=== PATIENT | male | born 1950 | race Caucasian/White ===

== ENCOUNTER 2017-01-30 16:15 | Emergency (ER) | payer BC, OTHER ==
[~2017-01-30] VITALS: Ht 170.2 cm; Wt 88.6 kg
[~2017-01-30 16:15] MED LIST: FERR325T PO; MULTTAB58 PO; OMEG100046 PO; PRAV10TA39 PO; TYLOTC500 PO
[2017-01-30 16:18] VITALS: TEMP 36.5; Ht 170.2 cm; Wt 88.6 kg
--- NOTE | 2017-01-30 16:42 | EMERGENCY ROOM VISIT NOTE ---
History Report prepared by Clayton: Andrea Monreal Under the Supervision of: Dr. Han Melvin M.D. First contact with patient: 16:25 Chief Complaint: RECTAL BLEEDING Stated Complaint: RECTAL BLEEDING History of Present Illness The patient is a 66 year old male who presents to the Emergency Room with complaints of worsening rectal bleeding starting prior to arrival. The patient' s states that the patient has diverticulitis and possible Crohn's disease, and this has happened before. She states that the patient was shoveling sod, and he was straining. This caused the bleeding to start again, and he could not get it under control. He additionally states that he has had gas for a couple of months which he has an ultrasound for this week, and he has a history of prostatitis. The patient states that he takes aspirin and Advil. The patient states that he had melena two days ago, however yesterday he had normal bowel movements. The patient states that he has had 3 bowel movements, and they have gotten more bloody each time. He denies having any abdominal pain. Source of History: patient, spouse/significant other Onset: prior to arrival Position: other (rectum) Quality: other (bleeding) Timing: worsening Associated Symptoms: + melena, No abdominal pain Review of Systems All systems have been listed, reviewed, and are negative other than those previously mentioned. Please see Additional Medical History Sheet. Past Medical & Surgical Medical Problems: (1) Diverticulitis (2) History of GI diverticular bleed Surgical Problems: (1) H/O hernia repair Family History FH: cancer Social History Smoking Status: Former Smoker Alcohol Use: occasionally Marital Status: Housing Status: lives with significant other Current/Historical Medications Scheduled Glucosamine Sulfate (Glucosamine), 1,000 MG PO DAILY Hydrocortisone/Pramoxine (Proctofoam Hc), 1 APPL [place] BID Multiple Vitamin (Multivitamin), 1 TAB PO DAILY [place]-3 Fatty Acids ([place] 3), 2-4 CAPSULES PO DAILY Pravastatin Sodium (Pravastatin Sodium), 5 MG PO HS Zinc Gluconate (Zinc), 1 TAB PO DAILY Scheduled PRN Acetaminophen (Tylenol), 1,000 MG PO for Pain Allergies Coded Allergies: No Known Allergies (Unverified , 01/30/17) Physical Exam Vital Signs Date Time Temp Pulse Resp B/P Pulse Ox O2 Delivery O2 Flow Rate FiO2 01/30/17 18:00 72 18 141/92 95 Room Air 01/30/17 17:08 78 01/30/17 16:58 85 18 132/89 84 152/77 97 121/84 01/30/17 16:18 36.5 80 16 131/92 93 Room Air Physical Exam GENERAL: Patient awake, alert, oriented x 3. Patient follows commands. Patient does not appear toxic. Patient is adequately hydrated and well- nourished. SKIN: No erythema, pallor, cyanosis or rash HEENT: Normal head, pupils equal, reactive to light and accommodation. LUNGS: Clear to auscultation. No wheezes, no rales, no rhonchi. HEART: No murmurs. No gallops. No rubs ABDOMEN: No masses, no rebound, no hepatomegaly or splenomegaly. RECTAL: No external hemorrhoids. No masses. Patient does have maroon blood which s instantly guaiac positive. EXTREMITIES: No signs of trauma or infection. NEUROLOGIC: Cranial nerves II-XII within normal limits. No gross motor sensory function deficits. Medical Decision & Procedures Laboratory Results 01/30/17 16:54 Red Blood Count 4.57, Mean Corpuscular Volume 92.3, Mean Corpuscular Hemoglobin 32.2, Mean Corpuscular Hemoglobin Concent 34.8, Mean Platelet Volume 9.4, Neutrophils (%) (Auto) 50.3, Lymphocytes (%) (Auto) 35.0, Monocytes (%) (Auto) 7.5, Eosinophils (%) (Auto) 5.7, Basophils (%) (Auto) 1.4, Neutrophils # (Auto) 3.81, Lymphocytes # (Auto) 2.66, Monocytes # (Auto) 0.57, Eosinophils # (Auto) 0.43, Basophils # (Auto) 0.11 01/30/17 16:54 Test 01/30/17 16:54 01/30/17 16:55 White Blood Count 7.59 K/uL (4.8-10.8) Red Blood Count 4.57 M/uL (4.7-6.1) Hemoglobin 14.7 g/dL (14.0-18.0) Hematocrit 42.2 % (42-52) Mean Corpuscular Volume 92.3 fL (80-100) Mean Corpuscular Hemoglobin 32.2 pg (25-34) Mean Corpuscular Hemoglobin Concent 34.8 g/dl (32-36) Platelet Count 232 K/uL (130-400) Mean Platelet Volume 9.4 fL (7.4-10.4) Neutrophils (%) (Auto) 50.3 % Lymphocytes (%) (Auto) 35.0 % Monocytes (%) (Auto) 7.5 % Eosinophils (%) (Auto) 5.7 % Basophils (%) (Auto) 1.4 % Neutrophils # (Auto) 3.81 K/uL (1.4-6.5) Lymphocytes # (Auto) 2.66 K/uL (1.2-3.4) Monocytes # (Auto) 0.57 K/uL (0.11-0.59) Eosinophils # (Auto) 0.43 K/uL (0-0.5) Basophils # (Auto) 0.11 K/uL (0-0.2) RDW Standard Deviation 43.7 fL (36.4-46.3) RDW Coefficient of Variation 13.0 % (11.5-14.5) Immature Granulocyte % (Auto) 0.1 % Immature Granulocyte # (Auto) 0.01 K/uL (0.00-0.02) Prothrombin Time 10.3 SECONDS (9.0-12.0) Prothromb Time International Ratio 1.0 (0.9-1.1) Activated Partial Thromboplast Time 25.0 SECONDS (21.0-31.0) Partial Thromboplastin Ratio 1.0 Anion Gap 8.0 mmol/L (3-11) Est Creatinine Clear Calc Drug Dose 78.2 ml/min Estimated GFR () 91.1 Estimated GFR (Non- 78.6 BUN/Creatinine Ratio 15.9 (10-20) Calcium Level 8.6 mg/dl (8.5-10.1) Total Bilirubin 0.3 mg/dl (0.2-1) Aspartate Amino Transf (AST/SGOT) 21 U/L (15-37) Alanine Aminotransferase (ALT/SGPT) 30 U/L (12-78) Alkaline Phosphatase 61 U/L (45-117) Total Protein 6.9 gm/dl (6.4-8.2) Albumin 3.4 gm/dl (3.4-5.0) Globulin 3.5 gm/dl (2.5-4.0) Albumin/Globulin Ratio 1.0 (0.9-2) Lipase 133 U/L (73-393) Urine Color YELLOW Urine Appearance CLEAR (CLEAR) Urine pH 5.0 (4.5-7.5) Urine Specific [place] 1.024 (1.000-1.030) Urine Protein NEG (NEG) Urine Glucose (UA) NEG (NEG) Urine Ketones NEG (NEG) Urine Occult Blood NEG (NEG) Urine Nitrite NEG (NEG) Urine Bilirubin NEG (NEG) Urine Urobilinogen NEG (NEG) Urine Leukocyte Esterase NEG (NEG) Laboratory results as stated above per my review. ECG Indication: other (rectal bleeding) Rate (beats per minute): 83 Rhythm: normal sinus Findings: no acute ischemic change, no ectopy ED Course 1624: Past medical records reviewed. The patient was evaluated in room C12. A complete history and physical examination was performed. 1805: Upon reevaluation, the patient appeared to have improvement of his symptoms. I discussed today's findings with him. He verbalized agreement of the treatment plan. He was discharged home. Medical Decision Nurses notes reviewed. Medical history sheet reviewed. Differential diagnosis includes but is not limited to: diverticulitis, Crohn's, anal fissure, internal hemorrhoids, anemia. The patient is here with bright red and maroon rectal bleeding. The patient does not have an external hemorrhoids but may have an internal hemorrhoid or fissure. There is some question of a prior history of diverticulitis. The patient has no abdominal pain. Multiple labs and orthostatics were obtained. Please see above. I reevaluated the patient prior to discharge and I feel that he is safe to return home but will require follow-up by his family physician. The patient was encouraged to return here sooner if bleeding gets worse. In the meantime the patient will be started on Proctofoam. Impression Primary Impression: Rectal bleed Scribe Attestation The scribe's documentation has been prepared under my direction and personally reviewed by me in its entirety. I confirm that the note above accurately reflects all work, treatment, procedures, and medical decision making performed by me. Departure Information Dispostion Home / Self-Care Prescriptions Hydrocortisone/Pramoxine (Proctofoam Hc) Aer 1 APPL [place] BID, #10 GM 1 Refill Prov: Han Melvin M.D. 01/30/17 Referrals Heidy Rasmussen M.D. (MEDICAL) (PCP) Forms HOME CARE DOCUMENTATION FORM, IMPORTANT VISIT INFORMATION Patient Instructions My [facility] Additional Instructions Apply Proctofoam twice a day until the prescription is completed. Follow-up with your family physician within the next 7 days. Return here sooner if you are bleeding more.
[2017-01-30 17:09] LABS: BASO % 1.4 %; BASO ABS # 0.11 K/uL (0-0.2); COMPLETE YES; EOS % 5.7 %; HEMATOCRIT 42.2 % (42-52); IG% 0.1 %; LYMPH ABS # 2.66 K/uL (1.2-3.4); MEAN CELL VOLUME 92.3 fL (80-100); MEAN CORPUSCULAR HEMOGLOBIN 32.2 pg (25-34); MEAN CORPUSCULAR HGB CONC 34.8 g/dl (32-36); MEAN PLATELET VOLUME 9.4 fL (7.4-10.4); MONO % 7.5 %; NEUT % 50.3 %; PLATELET COUNT 232 K/uL (130-400); RED BLOOD COUNT 4.57 M/uL (4.7-6.1); WHITE BLOOD COUNT 7.59 K/uL (4.8-10.8)
[2017-01-30 17:17] LABS: PROTHROMBIN TIME (PATIENT) 10.3 SECONDS (9.0-12.0)
[2017-01-30 17:25] LABS: BUN/CREATININE RATIO 15.9 (10-20); CALCIUM 8.6 mg/dl (8.5-10.1)
[2017-01-30 17:30] LABS: URINE APPEARANCE CLEAR (CLEAR); URINE BILIRUBIN NEG (NEG); URINE COLOR YELLOW; URINE NITRITE NEG (NEG); URINE SPECIFIC GRAVITY 1.024 (1.000-1.030); UROBILINOGEN NEG (NEG); ZZUR CULT IF INDIC CLEAN CATCH NO
[2017-01-30 17:35] LABS: MANUAL MICROSCOPIC REQUIRED? NO; REVIEW REQ? NO
[2017-01-30] MEDS ORDERED: ZINC1TAB PO (18:00)
[2017-01-30] MEDS ORDERED: GLUC10007 PO (18:00)
[2017-01-30] MEDS ORDERED: HYDRAER4 PR (18:15)
[2017-01-30 18:42] VITALS: BP 119/82; PULSE 75; O2SAT 95
== END 2017-01-30 18:44 | disposition home or self-care (01) ==
LOC: C.EDB 16:16 → C.EDC 18:44
DX: K62.5 Hemorrhage of anus and rectum (principal); K57.92 Diverticulitis of intestine, part unspecified, without perforation or abscess without bleeding; Z87.19 Personal history of other diseases of the digestive system; Z87.891 Personal history of nicotine dependence; Z98.890 Other specified postprocedural states; Z79.899 Other long term (current) drug therapy; Z80.9 Family history of malignant neoplasm, unspecified

== ENCOUNTER 2017-02-02 07:24 | Inpatient (IN) | payer OTHER ==
[~2017-02-02] VITALS: Ht 170.2 cm; Wt 88.0 kg
[~2017-02-02 07:24] MED LIST changes: -FERR325T PO; +GLUC10007 PO; +HYDRAER4 PR; +ZINC1TAB PO
--- NOTE | 2017-02-02 07:44 | EMERGENCY ROOM VISIT NOTE ---
History Report prepared by Clayton: Annabel Amezquita Under the Supervision of: Dr. Amador Cifuentes M.D. First contact with patient: 07:36 Chief Complaint: RECTAL BLEEDING Stated Complaint: BLEED FROM RECTUM History of Present Illness The patient is a 66 year old male who presents to the Emergency Room with complaints of worsening rectal bleeding with onset three days ago. The patient states that he has had previous episodes of rectal bleeding within the past several years. Three days ago, the patient was seen in the ED when he started to have rectal bleeding. He states that the doctor believed that the bleeding was due to a fissure. His blood count was normal at the time. This morning, the patient states that he went to the bathroom four times and that, each time, he noticed that the toilet was full of blood. When he wiped himself, he noticed bright red blood. He has not passed any clots. The patient has some rectal burning. The patient has had increasing gas and diarrhea. The patient has a headache. He denies fevers, chills, lightheadedness, dizziness, abdominal pain, vomiting, history of heart disease or diabetes, urinary symptoms. The patient states that he has prostatitis since April 2016. The patient is not on blood thinners. Additionally, the patient states that he has had three colonoscopies in the past four years. Source of History: patient Onset: 3 days ago Position: other (rectum) Quality: other (rectal bleeding) Timing: worsening Associated Symptoms: + diarrhea, + headache, No abdominal pain, No chills, No fevers, No urinary symptoms, No vomiting Note: When he wiped himself, he noticed bright red blood. He has not passed any clots. The patient has some rectal burning. The patient has had increasing gas and diarrhea. He denies lightheadedness, dizziness. Review of Systems See HPI for pertinent positives & negatives. A total of 10 systems reviewed and were otherwise negative. Past Medical & Surgical Medical Problems: (1) Bleeding per rectum (2) Diverticulitis (3) History of GI diverticular bleed Surgical Problems: (1) H/O hernia repair Old medical records were reviewed. Nurse's notes were reviewed and I agree with. Family History FH: cancer Social History Smoking Status: Former Smoker Alcohol Use: occasionally Marital Status: Housing Status: lives with significant other Current/Historical Medications Scheduled Glucosamine Sulfate (Glucosamine), 1,000 MG PO DAILY Hydrocortisone/Pramoxine (Proctofoam Hc), 1 APPL [place] BID Multiple Vitamin (Multivitamin), 1 TAB PO DAILY [place]-3 Fatty Acids ([place] 3), 1 CAP PO DAILY Pravastatin Sodium (Pravastatin Sodium), 5 MG PO HS Zinc Gluconate (Zinc), 1 TAB PO DAILY Scheduled PRN Acetaminophen (Tylenol), 500-1,000 MG PO for Pain Allergies Coded Allergies: No Known Allergies (Unverified , 01/30/17) Physical Exam Vital Signs Date Time Temp Pulse Resp B/P Pulse Ox O2 Delivery O2 Flow Rate FiO2 02/02/17 07:36 36.6 76 16 123/86 95 Room Air Physical Exam General: Non ill appearing older male, in no acute distress. HEENT: Normal cephalic atraumatic. Pupils are equal round and reactive to light. Extraocular movements are intact. Oropharynx is pink with moist mucous membranes. No swelling of the mouth lips or tongue. Neck: Supple with a midline trachea. No meningeal signs or stiffness, no JVD or bruits. No Stridor. Chest: Clear to auscultation bilaterally. No wheezes or rhonchi. No increased work of breathing. Heart: regular rate and rhythm. Abdomen: Soft nontender, nondistended without rebound guarding or rigidity. Extremities: No cyanosis clubbing or edema. No calf tenderness or assymetry Spine/Back. Non tender to palpation. No CVA tenderness Skin: Good turgor without rashes. Neurologic exam: Cranial nerves two through 12 are intact. Motor and sensation are intact and symmetrical throughout. Rectal: He has an anal fissure which is not actively bleeding. Stool was red to maroon in color and was guaiac positive. Medical Decision & Procedures Laboratory Results 02/02/17 08:03 Red Blood Count 4.11, Mean Corpuscular Volume 90.5, Mean Corpuscular Hemoglobin 31.1, Mean Corpuscular Hemoglobin Concent 34.4, Mean Platelet Volume 9.1, Neutrophils (%) (Auto) 70.1, Lymphocytes (%) (Auto) 19.6, Monocytes (%) (Auto) 6.7, Eosinophils (%) (Auto) 2.6, Basophils (%) (Auto) 0.8, Neutrophils # (Auto) 6.83, Lymphocytes # (Auto) 1.91, Monocytes # (Auto) 0.65, Eosinophils # (Auto) 0.25, Basophils # (Auto) 0.08 02/02/17 08:03 Test 02/02/17 08:03 White Blood Count 9.74 K/uL (4.8-10.8) Red Blood Count 4.11 M/uL (4.7-6.1) Hemoglobin 12.8 g/dL (14.0-18.0) Hematocrit 37.2 % (42-52) Mean Corpuscular Volume 90.5 fL (80-100) Mean Corpuscular Hemoglobin 31.1 pg (25-34) Mean Corpuscular Hemoglobin Concent 34.4 g/dl (32-36) Platelet Count 216 K/uL (130-400) Mean Platelet Volume 9.1 fL (7.4-10.4) Neutrophils (%) (Auto) 70.1 % Lymphocytes (%) (Auto) 19.6 % Monocytes (%) (Auto) 6.7 % Eosinophils (%) (Auto) 2.6 % Basophils (%) (Auto) 0.8 % Neutrophils # (Auto) 6.83 K/uL (1.4-6.5) Lymphocytes # (Auto) 1.91 K/uL (1.2-3.4) Monocytes # (Auto) 0.65 K/uL (0.11-0.59) Eosinophils # (Auto) 0.25 K/uL (0-0.5) Basophils # (Auto) 0.08 K/uL (0-0.2) RDW Standard Deviation 42.6 fL (36.4-46.3) RDW Coefficient of Variation 12.9 % (11.5-14.5) Immature Granulocyte % (Auto) 0.2 % Immature Granulocyte # (Auto) 0.02 K/uL (0.00-0.02) Prothrombin Time 10.4 SECONDS (9.0-12.0) Prothromb Time International Ratio 1.0 (0.9-1.1) Activated Partial Thromboplast Time 24.7 SECONDS (21.0-31.0) Partial Thromboplastin Ratio 1.0 Anion Gap 8.0 mmol/L (3-11) Est Creatinine Clear Calc Drug Dose 78.0 ml/min Estimated GFR () 91.1 Estimated GFR (Non- 78.6 BUN/Creatinine Ratio 16.0 (10-20) Calcium Level 8.5 mg/dl (8.5-10.1) Total Bilirubin 0.4 mg/dl (0.2-1) Direct Bilirubin < 0.1 mg/dl (0-0.2) Aspartate Amino Transf (AST/SGOT) 22 U/L (15-37) Alanine Aminotransferase (ALT/SGPT) 26 U/L (12-78) Alkaline Phosphatase 58 U/L (45-117) Total Protein 6.6 gm/dl (6.4-8.2) Albumin 3.3 gm/dl (3.4-5.0) Lipase 151 U/L (73-393) Laboratory studies as stated above per my review. Medications Administered Medications (Trade) Dose Ordered Sig/Grzegorz Route Start Time Stop Time Status Last Admin Dose Admin Sodium Chloride (Nss 1000ml) 1,000 ml @ 999 mls/hr Q1H1M STAT IV 02/02/17 07:45 02/02/17 08:45 DC 02/02/17 08:13 999 MLS/HR ECG Indication: other (rectal bleeding) Rate (beats per minute): 81 Rhythm: normal sinus Findings: PVC (occasional), no acute ischemic change Comparison ECG Date: January 30, 2017 Change: When compared to previous EKG, PVCs are now present. ED Course 0738: Past medical records reviewed. The patient was evaluated in room A9, and a complete history and physical examination were performed. 0745: Sodium Chloride 1000 ml @ 150 mls/hr IV, Sodium Chloride 1000 ml @ 999 mls /hr IV 0826: Upon reevaluation, the patient is resting. I discussed the results and treatment plan with the patient. He verbalized agreement of the treatment plan. The patient will be evaluated for further management. 0836: I discussed the case with Dr. Bar ([facility]); she will further evaluate the patient. Medical Decision Differentials include, but are not limited to; GI bleed, diverticulitis, anal fissure, anemia, infection, electrolyte or metabolic abnormality. This patient comes in as described above he was seen a couple days ago with rectal bleeding he has continuing bleeding with bright red blood is no lightheadedness or dizziness. His vital signs are stable. He does have a history of diverticular bleed in the past it sounds like. IV access established and he was hydrated with IV normal saline. Blood work was obtained. I did examine him as well. He does have a anal fissure externally but this does not appear to be bleeding. On internal exam, he has no tenderness or masses but his stool was bloody to maroon in color and guaiac positive. I suspect this is coming from a lower GI bleed probably has diverticular bleeds like he's had in the past. I'm concerned that his hemoglobin has dropped almost 2 g from 14.7, 3 days ago to 12.8 today. He's been hemolytically stable. He has no acute electrolyte or metabolic abnormalities. He has nothing to suggest cardiac ischemia. He's been typed and screened for the possibility of blood. I do think he needs to be admitted for further treatment and evaluation and monitoring of his lower GI bleed. I have consulted Dr. Bar from the [facility] team and they will see him in the ER. Consults Time Called: [phone] Consulting Physician: Dr. Bar ([facility]) Returned Call: [phone] I discussed the case with Dr. Bar ([facility]); she will further evaluate the patient. Impression Primary Impression: Lower GI bleed Additional Impression: Anemia Scribe Attestation The scribe's documentation has been prepared under my direction and personally reviewed by me in its entirety. I confirm that the note above accurately reflects all work, treatment, procedures, and medical decision making performed by me. Departure Information Dispostion Being Evaluated By Hospitalist Referrals Heidy Rasmussen M.D. (MEDICAL) (PCP) Patient Instructions My [facility] Problem Qualifiers
[2017-02-02] MEDS ORDERED: SODIUM CHLORIDE 0.9% 1000ML 1,000 ML IV STA (07:45)
[2017-02-02] MEDS ORDERED: SODIUM CHLORIDE 0.9% 1000ML 1,000 ML IV ONE (07:45)
[2017-02-02 08:16] LABS: BASO % 0.8 %; BASO ABS # 0.08 K/uL (0-0.2); COMPLETE YES; EOS % 2.6 %; HEMATOCRIT 37.2 % (42-52); IG% 0.2 %; LYMPH % 19.6 %; LYMPH ABS # 1.91 K/uL (1.2-3.4); MEAN CELL VOLUME 90.5 fL (80-100); MEAN CORPUSCULAR HEMOGLOBIN 31.1 pg (25-34); MEAN CORPUSCULAR HGB CONC 34.4 g/dl (32-36); MEAN PLATELET VOLUME 9.1 fL (7.4-10.4); MONO % 6.7 %; NEUT % 70.1 %; PLATELET COUNT 216 K/uL (130-400); RED BLOOD COUNT 4.11 M/uL (4.7-6.1); WHITE BLOOD COUNT 9.74 K/uL (4.8-10.8)
[2017-02-02 08:34] LABS: ALT/SGPT 26 U/L (12-78); BLOOD UREA NITROGEN 16 mg/dl (7-18); CALCIUM 8.5 mg/dl (8.5-10.1); CARBON DIOXIDE 26 mmol/L (21-32); CHLORIDE 107 mmol/L (98-107); GLUCOSE 104 mg/dl (70-99); SODIUM 141 mmol/L (136-145)
[2017-02-02 08:37] LABS: ALKALINE PHOSPHATASE 58 U/L (45-117); AST/SGOT 22 U/L (15-37)
[2017-02-02 08:40] LABS: PROTHROMBIN TIME (PATIENT) 10.4 SECONDS (9.0-12.0)
[2017-02-02] MEDS ORDERED: ACETAMINOPHEN 325 MG TAB PO PRN (08:45)
[2017-02-02] MEDS ORDERED: ONDANSETRON INJ 2 MG/ML 2 ML VIAL IV PRN (08:45)
[2017-02-02] MEDS ORDERED: POLYETHYLENE (MIRALAX) 17 GM PACK PO PRN (08:45)
--- NOTE | 2017-02-02 09:40 | History and Physical ---
History & Physical Date & Time of Service: Feb 02, 2017 at 09:31 Chief Complaint: Bleed From Rectum Primary Care Physician: Heidy Rasmussen M.D. (MEDICAL) History of Present Illness Source: patient, clinic records, hospital records Patient seen and examined. 66 year old male with PMHx of HLD, and GI bleeds reports to the ED complaining of "bleeding rectum" x 4 days. Patient reports he started having BRBPR on Saturday, at that time there were occasionally clots of blood. He came to the ED Hgb was stable at 14 and he was discharged home. He reports last night he it started to look like there was more blood in the toilet with BMs and he reports having a BM about every thirty minutes. So he returned to the ED for further evaluation. He reports that his stool is formed and denies diarrhea. He reports that on Saturday he took an Advil for lowback pain and marisela seltzer which had aspirin in it for nasal congestion. He reports he knows he is not to take these medications and that usually when he does he develops GI bleeds. He does not take NSAIDs or blood thinners on a regular basis. He denies fevers, chills, URI symptoms, chest pain, SOB, nausea, vomiting , abdominal pain, diarrhea, dysuria, calf pain and edema. In the ED VS are stable, hgb is 12 from 14 four days ago. He received IVFs. He is resting comfortably. He will be observed for further workup and treatment. Past Medical/Surgical History Medical Problems: (1) Diverticulitis Status: Resolved (2) History of GI diverticular bleed Status: Resolved (3) HLD (hyperlipidemia) Status: Chronic Surgical Problems: (1) H/O colonoscopy Status: Chronic (2) H/O hernia repair Status: Resolved Family History Diabetes mellitus FH: cancer Hypertension Social History Smoking Status: Former Smoker Alcohol Use: none Marital Status: Housing status: lives with family Immunizations History of Influenza Vaccine: Yes Influenza Vaccine Date: Aug 15, 2013 History of Tetanus Vaccine?: Yes History of Pneumococcal: No History of Hepatitis B Vaccine: No Multi-Drug Resistant Organisms History of MDRO: No Allergies Coded Allergies: No Known Allergies (Unverified , 01/30/17) Home Medications Scheduled Glucosamine Sulfate (Glucosamine), 1,000 MG PO DAILY Hydrocortisone/Pramoxine (Proctofoam Hc), 1 APPL [place] BID Multiple Vitamin (Multivitamin), 1 TAB PO DAILY [place]-3 Fatty Acids ([place] 3), 1 CAP PO DAILY Pravastatin Sodium (Pravastatin Sodium), 5 MG PO HS Zinc Gluconate (Zinc), 1 TAB PO DAILY Scheduled PRN Acetaminophen (Tylenol), 500-1,000 MG PO for Pain Review of Systems See above for pertinent positives & negatives. A total of 10 systems reviewed and were otherwise negative. Physical Exam Vital Signs Date Time Temp Pulse Resp B/P Pulse Ox O2 Delivery O2 Flow Rate FiO2 02/02/17 09:11 36.4 80 118/82 96 Room Air 02/02/17 07:36 36.6 76 16 123/86 95 Room Air General Appearance: + pertinent finding (Pleasant WD/WN 66 year old male lying in bed in NAD ) Head: normocephalic, atraumatic Eyes: PERRL, EOMI, sclerae normal ENT: hearing grossly normal, pharynx normal Neck: supple, no JVD Respiratory/Chest: chest non-tender, lungs clear, normal breath sounds, no respiratory distress, no accessory muscle use Cardiovascular: regular rate, rhythm, no edema, no gallop, no JVD, no murmur, normal peripheral pulses Abdomen/GI: normal bowel sounds, non tender, soft Back: normal inspection, no CVA tenderness, no muscle spasm Extremities/Musculoskelatal: no calf tenderness, normal capillary refill, no pedal edema Neurologic/Psych: alert, oriented x 3, + pertinent finding (no focal deficits ) Skin: normal color, warm/dry, no rash Lymphatic: no adenopathy Diagnostics Laboratory Results Results Past 24 Hours Test 02/02/17 08:03 Range/Units White Blood Count 9.74 4.8-10.8 K/uL Red Blood Count 4.11 4.7-6.1 M/uL Hemoglobin 12.8 14.0-18.0 g/dL Hematocrit 37.2 42-52 % Mean Corpuscular Volume 90.5 80-100 fL Mean Corpuscular Hemoglobin 31.1 25-34 pg Mean Corpuscular Hemoglobin Concent 34.4 32-36 g/dl Platelet Count 216 130-400 K/uL Mean Platelet Volume 9.1 7.4-10.4 fL Neutrophils (%) (Auto) 70.1 % Lymphocytes (%) (Auto) 19.6 % Monocytes (%) (Auto) 6.7 % Eosinophils (%) (Auto) 2.6 % Basophils (%) (Auto) 0.8 % Neutrophils # (Auto) 6.83 1.4-6.5 K/uL Lymphocytes # (Auto) 1.91 1.2-3.4 K/uL Monocytes # (Auto) 0.65 0.11-0.59 K/uL Eosinophils # (Auto) 0.25 0-0.5 K/uL Basophils # (Auto) 0.08 0-0.2 K/uL RDW Standard Deviation 42.6 36.4-46.3 fL RDW Coefficient of Variation 12.9 11.5-14.5 % Immature Granulocyte % (Auto) 0.2 % Immature Granulocyte # (Auto) 0.02 0.00-0.02 K/uL Prothrombin Time 10.4 9.0-12.0 SECONDS Prothromb Time International Ratio 1.0 0.9-1.1 Activated Partial Thromboplast Time 24.7 21.0-31.0 SECONDS Partial Thromboplastin Ratio 1.0 Sodium Level 141 136-145 mmol/L Potassium Level 4.0 3.5-5.1 mmol/L Chloride Level 107 98-107 mmol/L Carbon Dioxide Level 26 21-32 mmol/L Anion Gap 8.0 3-11 mmol/L Blood Urea Nitrogen 16 7-18 mg/dl Creatinine 1.00 0.60-1.40 mg/dl Est Creatinine Clear Calc Drug Dose 78.0 ml/min Estimated GFR () 91.1 Estimated GFR (Non- 78.6 BUN/Creatinine Ratio 16.0 10-20 Random Glucose 104 70-99 mg/dl Calcium Level 8.5 8.5-10.1 mg/dl Total Bilirubin 0.4 0.2-1 mg/dl Direct Bilirubin < 0.1 0-0.2 mg/dl Aspartate Amino Transf (AST/SGOT) 22 15-37 U/L Alanine Aminotransferase (ALT/SGPT) 26 12-78 U/L Alkaline Phosphatase 58 45-117 U/L Total Protein 6.6 6.4-8.2 gm/dl Albumin 3.3 3.4-5.0 gm/dl Lipase 151 73-393 U/L EKG Sinus rhythm with sinus arrhythmia, 81 BPM, QTc 434 Impression Assessment and Plan 66 year old male with history of GI bleeds, presents to the ED complaining of rectal bleeding x 4 days. RECTAL BLEEDING -observation med/surg -Risk factors of GI bleed - recent NSAID use -Last colonoscopy 11/23/13 severe diverticulosis and internal hemorrhoids. EGD unremarkable -Hgb 12.8 -Clear liquid diet -Follow H&H -Protonix IV BID -GI consult for further workup -Gentle IVF hydration -CBC, PRP in AM -hemodynamically stable, monitor per routine -avoid anticoagulation ANEMIA -mild hgb 12.8 -likely secondary to above -type and screen completed -follow H&H HLD -continue Statin DVT PROPHYLAXIS: SCDs RE: GI bleed CODE STATUS: FULL CODE DISPO:observation pending further workup Patient seen in collaboration with Dr. Shannen Bar VTE Prophylaxis VTE Risk Assessment Done? Y/N: Yes Risk Level: Low
[2017-02-02 09:56] VITALS: BP 129/88; PULSE 75; TEMP 36.4; O2SAT 96; Ht 170.2 cm; Wt 88.0 kg
[2017-02-02] MEDS: SODIUM CHLORIDE 0.9% 1000ML 1,000 ML IV SCH ×2 (10:22→21:31)
[2017-02-02] MEDS ORDERED: PANTOprazole INJ 40 MG in SYRINGE 0 ML IV SCH (11:00)
[2017-02-02] MEDS: MULTIVITAMIN TAB PO SCH (11:24)
[2017-02-02] MEDS: ZINC SULFATE 220 MG CAP PO SCH (11:24)
[2017-02-02] MEDS: OMEGA-3 (PURIFIED FISH OIL) 1 GM CAP PO SCH (11:24)
[2017-02-02] MEDS ORDERED: IV FLUIDS COMPLETED PRN (11:45)
--- NOTE | 2017-02-02 12:16 | Gastrointestinal Consultation ---
Gastrointestinal Consultation Date of Consultation: Feb 02, 2017 History of Present Illness Patient is a 66 year old male whom I have been asked to see for painless rectal bleeding. He is a pleasant 66 yo male with below past medical hx who presented to ER 2 times in one week for painless rectal bleeding. He began having several days ago , mildly and intermittently persisted, he returned to ER this am after having 4 bright red stools. No pain preceeding or afterwards, no nausea, vomiting, or fevers, chills. He states he feels quite well, has no symptoms of orthostasis or lightheadedness. He has unfortunately had this happen to him at least on 4 other occasions, very similiarily as to today starting in 2011. He has has 3 colonoscopies for this with brooks diverticulosis being identified. Patient states he does not want any further colonoscopies. Hb was down mildly but greater than 12 since most recent ER visit. Normal bun. No recent NSAID use or ulcer risk factors. He wants to go home. Last evidence of bleeding was prior to coming to ER. Past Medical/Surgical History Medical Problems: (1) Anemia Status: Acute (2) Lower GI bleed Status: Acute (3) Rectal bleed Status: Acute Family History Diabetes mellitus FH: cancer Hypertension Social History Smoking Status: Former Smoker Alcohol Use: occasionally Marital Status: Housing Status: lives with significant other Allergies Coded Allergies: No Known Allergies (Unverified , 01/30/17) Current Medications Home Meds and Scripts Medications Dose Route/Sig Max Daily Dose Days Date Category Proctofoam Hc (Hydrocortisone/Pramoxine) Aer 1 Appl OR BID 01/30/17 Rx Glucosamine (Glucosamine Sulfate) 1,000 Mg Tab 1,000 Mg PO DAILY 01/30/17 Reported Zinc (Zinc Gluconate) 50 Mg Tab 1 Tab PO DAILY 01/30/17 Reported Tylenol (Acetaminophen) 500 Mg Tab 500-1,000 Mg PO PRN 11/20/13 Reported Pravastatin Sodium 10 Mg Tab 5 Mg PO HS 11/20/13 Reported Gambrills 3 (Gambrills-3 Fatty Acids) 1 Cap Cap 1 Cap PO DAILY 11/20/13 Reported Multivitamin (Multiple Vitamin) 1 Tab Tab 1 Tab PO DAILY 11/20/13 Reported Review of Systems Constitutional: No chills, No fatigue, No fever, No problem reported, No see HPI, No sweats, No weakness, No weight loss Eyes: No diplopia, No discharge, No eye pain, No problem reported, No redness, No see HPI, No worsening of vision ENT: No dental problems, No hearing loss, No nasal symptoms, No pain on swallowing, No problem reported, No see HPI, No sore throat, No tinnitus, No trouble swallowing, No unusual epistaxis Respiratory: No cough, No dyspnea at rest, No dyspnea on exertion, No hemoptysis, No problem reported, No see HPI, No shortness of breath, No sputum, No wheezing Cardiac: No PND, No chest pain, No claudication, No edema, No orthopnea, No palpitations, No problem reported, No see HPI Abdomen: + see HPI Musculoskeletal: No calf pain, No joint pain, No muscle pain, No problem reported, No see HPI, No swelling Neuro: No balance problems, No memory loss, No numbness/tingling, No paralysis , No problem reported, No see HPI, No vertigo, No weakness Psych: No anhedonism, No anxiety, No depression symptoms, No insomnia, No problem reported, No see HPI, No substance abuse Physical Exam Date Time Temp Pulse Resp B/P Pulse Ox O2 Delivery O2 Flow Rate FiO2 02/02/17 09:56 36.4 75 16 129/88 96 Room Air 02/02/17 09:11 36.4 80 118/82 96 Room Air 02/02/17 07:36 36.6 76 16 123/86 95 Room Air General Appearance: WD/WN, + pertinent finding (walking in room and sitting on bedside, looks well.) ENT: normal ENT inspection Respiratory/Chest: chest non-tender Cardiovascular: regular rate, rhythm Abdomen: normal bowel sounds, non tender Extremities: normal range of motion Neurologic/Psych: drafter civil (cad) II-XII nml as tested rectal exam with small rectal fissure at 6 o clock Laboratory Results Last 24 Hours Test 02/02/17 08:03 White Blood Count 9.74 K/uL Red Blood Count 4.11 M/uL Hemoglobin 12.8 g/dL Hematocrit 37.2 % Mean Corpuscular Volume 90.5 fL Mean Corpuscular Hemoglobin 31.1 pg Mean Corpuscular Hemoglobin Concent 34.4 g/dl Platelet Count 216 K/uL Mean Platelet Volume 9.1 fL Neutrophils (%) (Auto) 70.1 % Lymphocytes (%) (Auto) 19.6 % Monocytes (%) (Auto) 6.7 % Eosinophils (%) (Auto) 2.6 % Basophils (%) (Auto) 0.8 % Neutrophils # (Auto) 6.83 K/uL Lymphocytes # (Auto) 1.91 K/uL Monocytes # (Auto) 0.65 K/uL Eosinophils # (Auto) 0.25 K/uL Basophils # (Auto) 0.08 K/uL RDW Standard Deviation 42.6 fL RDW Coefficient of Variation 12.9 % Immature Granulocyte % (Auto) 0.2 % Immature Granulocyte # (Auto) 0.02 K/uL Prothrombin Time 10.4 SECONDS Prothromb Time International Ratio 1.0 Activated Partial Thromboplast Time 24.7 SECONDS Partial Thromboplastin Ratio 1.0 Sodium Level 141 mmol/L Potassium Level 4.0 mmol/L Chloride Level 107 mmol/L Carbon Dioxide Level 26 mmol/L Anion Gap 8.0 mmol/L Blood Urea Nitrogen 16 mg/dl Creatinine 1.00 mg/dl Est Creatinine Clear Calc Drug Dose 78.0 ml/min Estimated GFR () 91.1 Estimated GFR (Non- 78.6 BUN/Creatinine Ratio 16.0 Random Glucose 104 mg/dl Calcium Level 8.5 mg/dl Total Bilirubin 0.4 mg/dl Direct Bilirubin < 0.1 mg/dl Aspartate Amino Transf (AST/SGOT) 22 U/L Alanine Aminotransferase (ALT/SGPT) 26 U/L Alkaline Phosphatase 58 U/L Total Protein 6.6 gm/dl Albumin 3.3 gm/dl Lipase 151 U/L Impression Patient is a 66 year old male admitted with painless rectal bleeding. Plan Likely is recurrent diverticular bleeding, does have mild fissure which also may be contributory. He has no hemodynamic compromise Hb greater than 12 and no further bleeding. Recs -Supportive care -Liquid diet and advance as tolerated -Nitroglycerin or hydrocortisone suppository for the fissure -If has further bleeding will encourage for repeat colonoscopy
--- NOTE | 2017-02-02 15:04 | Progress Note ---
Progress Note Date of Service Feb 02, 2017. Progress Note Patient was seen and evaluated with JOSEPH Layne. Patient came to ED x 2 for bright blood per rectum. Has had it 3-4 times in past , had 3 colonoscopies in last 3-4 years--> Diverticulosis. This time came with 4 episodes of BRBP. C/o bloating, mild abdominal pain, no diarrhea On exam, AAOX3, no distress, Neck- Supple, Lungs- clear, no wheezing, crackles, Heart -S 1,S2 normal, Abdomen- Soft, non tender, BS Ext- no edema ASSESSMENT AND PLAN: 66 year old male with history of GI bleeds, presents to the ED complaining of rectal bleeding x 4 days. BLEEDING PER RECTUM : Patient came to ED x 2 for bright blood per rectum. Has had it 3-4 times in past , had 3 colonoscopies in last 3-4 years--> Diverticulosis. This time came with 4 episodes of BRBP -Last colonoscopy 11/23/13 severe diverticulosis and internal hemorrhoids. EGD unremarkable -Hgb 14.7--> 12.8 in 3 days -Clear liquid diet ; IVF -Protonix IV BID -Monitor H & H -GI consulted ANEMIA, ACUTE BLOOD LOSS Secondary to GI bleeding as above Hb 14.7--> 12.8 in 3 days -Likely secondary to above -Type and screen completed; Monitor H & H HLD -Continue Statin DVT PROPHYLAXIS: SCDs RE: GI bleed CODE STATUS: FULL CODE DISPO: Observation status
[2017-02-02] MEDS ORDERED: BISMUTH SUBSALICYLATE 262 MG CHEW PO ONE (15:15)
[2017-02-02] MEDS: PRAVASTATIN SOD 10 MG TAB PO SCH (21:27)
[2017-02-02] MEDS: HYDROCORTISONE HC 2.5% CRM 30GM TUBE EXT SCH (21:31)
[2017-02-02 23:22] VITALS: BP 143/91; PULSE 84; TEMP 36.9; O2SAT 95
[2017-02-03 06:35] LABS: MEAN CELL VOLUME 92.2 fL (80-100); MEAN CORPUSCULAR HEMOGLOBIN 31.7 pg (25-34); MEAN CORPUSCULAR HGB CONC 34.4 g/dl (32-36); MEAN PLATELET VOLUME 9.6 fL (7.4-10.4); PLATELET COUNT 233 K/uL (130-400); RED BLOOD COUNT 3.47 M/uL (4.7-6.1); WHITE BLOOD COUNT 8.72 K/uL (4.8-10.8)
[2017-02-03 07:15] LABS: BUN/CREATININE RATIO 14.2 (10-20); CREATININE 0.97 mg/dl (0.60-1.40); POTASSIUM 3.8 mmol/L (3.5-5.1)
[2017-02-03 07:33] VITALS: BP 123/82; PULSE 78; TEMP 36.5; O2SAT 96
[2017-02-03 07:40] VITALS: O2SAT 96
[2017-02-03] MEDS: MULTIVITAMIN TAB PO SCH (08:36)
[2017-02-03] MEDS: OMEGA-3 (PURIFIED FISH OIL) 1 GM CAP PO SCH (08:37)
[2017-02-03] MEDS: ZINC SULFATE 220 MG CAP PO SCH (08:37)
[2017-02-03] MEDS: PANTOprazole SOD 40 MG TAB PO SCH (08:39)
[2017-02-03] MEDS: HYDROCORTISONE HC 2.5% CRM 30GM TUBE EXT SCH ×2 (08:39→21:20)
[2017-02-03] MEDS: SODIUM CHLORIDE 0.9% 1000ML 1,000 ML IV SCH ×2 (11:00→23:24)
--- NOTE | 2017-02-03 11:50 | Gastroenterology Progress Note ---
Progress Note Date of Service: Feb 03, 2017 Subjective Pt evaluation today including: conversation w/ patient One large bloody BM last brant, no symptomatic or hemodynamic change. Up in hallway walking upon exam. Hb has declined by 1 g Medications Current Inpatient Medications Medications (Trade) Dose Ordered Sig/Grzegorz Route Start Time Stop Time Status Last Admin Dose Admin Multivitamins (Multivitamin Tab) 1 tab DAILY PO 02/02/17 09:00 03/04/17 08:59 02/03/17 08:36 1 TAB Fish Oil ([place]-3 (Purified Fish Oil) Cap) 1 gm DAILY PO 02/02/17 09:00 03/04/17 08:59 02/03/17 08:37 1 GM Pravastatin Sodium (Pravachol Tab) 5 mg HS PO 02/02/17 21:00 03/04/17 20:59 02/02/17 21:27 5 MG Hydrocortisone (Proctozone Hc 2.5% Crm) 1 appln BID EXT 02/02/17 21:00 03/04/17 20:59 02/03/17 08:39 1 APPLN Zinc Sulfate (Zinc Sulfate Cap) 220 mg DAILY PO 02/02/17 09:00 03/04/17 08:59 02/03/17 08:37 220 MG Acetaminophen (Tylenol Tab) 650 mg Q4H PRN PO 02/02/17 08:45 03/04/17 08:44 Polyethylene (Miralax Powder Packet) 17 gm DAILY PRN PO 02/02/17 08:45 03/04/17 08:44 Ondansetron HCl 4 mg 4 mg Q6H PRN IV 02/02/17 08:45 03/04/17 08:44 Sodium Chloride (Nss 1000ml) 1,000 ml @ 75 mls/hr [id number] IV 02/02/17 08:45 03/04/17 08:44 02/03/17 11:00 75 MLS/HR Miscellaneous (Iv Fluids Completed) 1 ea PRN PRN N/A 02/02/17 11:45 02/02/18 11:44 Pantoprazole Sodium (Protonix Tab) 40 mg QAM PO 02/03/17 09:00 03/05/17 08:59 Objective Vital Signs Date Time Temp Pulse Resp B/P Pulse Ox O2 Delivery O2 Flow Rate FiO2 02/03/17 11:07 Room Air 02/03/17 07:40 96 Room Air 02/03/17 07:33 36.5 78 16 123/82 96 Room Air 02/02/17 23:25 Room Air 02/02/17 23:22 36.9 84 20 143/91 95 Room Air 02/02/17 20:00 Room Air 02/02/17 16:00 Room Air Physical Exam General Appearance: WD/WN, no apparent distress Eyes: normal inspection ENT: normal ENT inspection Neck: supple, no adenopathy Respiratory/Chest: chest non-tender Cardiovascular: regular rate, rhythm, no gallop Abdomen: normal bowel sounds, non tender Extremities: normal range of motion Laboratory Results Last 24 Hours Test 02/03/17 05:50 White Blood Count 8.72 K/uL Red Blood Count 3.47 M/uL Hemoglobin 11.0 g/dL Hematocrit 32.0 % Mean Corpuscular Volume 92.2 fL Mean Corpuscular Hemoglobin 31.7 pg Mean Corpuscular Hemoglobin Concent 34.4 g/dl RDW Standard Deviation 44.2 fL RDW Coefficient of Variation 13.3 % Platelet Count 233 K/uL Mean Platelet Volume 9.6 fL Sodium Level 144 mmol/L Potassium Level 3.8 mmol/L Chloride Level 110 mmol/L Carbon Dioxide Level 26 mmol/L Anion Gap 8.0 mmol/L Blood Urea Nitrogen 14 mg/dl Creatinine 0.97 mg/dl Est Creatinine Clear Calc Drug Dose 80.4 ml/min Estimated GFR () 94.6 Estimated GFR (Non- 81.6 BUN/Creatinine Ratio 14.2 Random Glucose 104 mg/dl Calcium Level 8.0 mg/dl Assessment and Plan 66 yo with painless rectal bleeding -Still likely diverticular -No hemodynamic change -Plan for preparation and colonoscopy in the am.
--- NOTE | 2017-02-03 12:45 | Progress Note ---
Internal Med Progress Note Date of Service: Feb 03, 2017. Provider Documentation: SUBJECTIVE: Patient had an episode of blood per rectum overnight. Was upset over it. Doing better now. No more episodes since than, No abdominal pain, nausea, vomiting, diarrhea, dizziness, syncope. OBJECTIVE: Vital Signs-as noted below Exam: General-AAOX3, no distress Neck-Supple, No JVD Lungs-AEBE, no wheezing, rhonchi Heart-S1, S2 normal, no murmurs Abdomen-Soft, non tender, non distended, BS present Extremities-No edema Lab data as noted below. ASSESSMENT & PLAN: ASSESSMENT AND PLAN: 66 year old male with history of GI bleeds, presents to the ED complaining of rectal bleeding x 4 days. BLEEDING PER RECTUM : Patient came to ED x 2 for bright blood per rectum. Has had it 3-4 times in past , had 3 colonoscopies in last 3-4 years--> Diverticulosis. This time came with 4 episodes of BRBP, had one more overnight. Likely diverticular bleeding. -Last colonoscopy 11/23/13 severe diverticulosis and internal hemorrhoids. EGD unremarkable -Hgb 14.7--> 12.8 --> 11 in 4 days -Clear liquid diet -Protonix IV BID -Monitor H & H -GI consulted- Plan is for Colonoscopy in AM ANEMIA, ACUTE BLOOD LOSS Secondary to GI bleeding as above Hb 14.7--> 12.8-->11 in 4 days -Likely secondary to above -Type and screen completed; Monitor H & H HLD -Continue Statin DVT PROPHYLAXIS: SCDs RE: GI bleed CODE STATUS: FULL CODE DISPO: Observation status--> Change to admission status Vital Signs: Date Time Temp Pulse Resp B/P Pulse Ox O2 Delivery O2 Flow Rate FiO2 02/03/17 11:07 Room Air 02/03/17 07:40 96 Room Air 02/03/17 07:33 36.5 78 16 123/82 96 Room Air 02/02/17 23:25 Room Air 02/02/17 23:22 36.9 84 20 143/91 95 Room Air 02/02/17 20:00 Room Air 02/02/17 16:00 Room Air Lab Results: Results Past 24 Hours Test 02/03/17 05:50 Range/Units White Blood Count 8.72 4.8-10.8 K/uL Red Blood Count 3.47 4.7-6.1 M/uL Hemoglobin 11.0 14.0-18.0 g/dL Hematocrit 32.0 42-52 % Mean Corpuscular Volume 92.2 80-100 fL Mean Corpuscular Hemoglobin 31.7 25-34 pg Mean Corpuscular Hemoglobin Concent 34.4 32-36 g/dl RDW Standard Deviation 44.2 36.4-46.3 fL RDW Coefficient of Variation 13.3 11.5-14.5 % Platelet Count 233 130-400 K/uL Mean Platelet Volume 9.6 7.4-10.4 fL Sodium Level 144 136-145 mmol/L Potassium Level 3.8 3.5-5.1 mmol/L Chloride Level 110 98-107 mmol/L Carbon Dioxide Level 26 21-32 mmol/L Anion Gap 8.0 3-11 mmol/L Blood Urea Nitrogen 14 7-18 mg/dl Creatinine 0.97 0.60-1.40 mg/dl Est Creatinine Clear Calc Drug Dose 80.4 ml/min Estimated GFR () 94.6 Estimated GFR (Non- 81.6 BUN/Creatinine Ratio 14.2 10-20 Random Glucose 104 70-99 mg/dl Calcium Level 8.0 8.5-10.1 mg/dl
[2017-02-03 15:20] VITALS: BP 113/76; PULSE 76; TEMP 36.5; O2SAT 94
[2017-02-03] MEDS ORDERED: BISACODYL 5 MG TABEC PO ONE (17:00)
[2017-02-03] MEDS: POLYETHYLENE (MIRALAX) 17 GM PACK PO SCH (17:04)
[2017-02-03] MEDS: PRAVASTATIN SOD 10 MG TAB PO SCH (21:19)
[2017-02-03 23:05] VITALS: BP 125/87; PULSE 70; TEMP 36.7; O2SAT 96
[2017-02-04] MEDS: POLYETHYLENE (MIRALAX) 17 GM PACK PO SCH (04:42)
[2017-02-04 04:51] VITALS: BP 125/87; PULSE 70; TEMP 36.7; O2SAT 96
[2017-02-04 05:54] LABS: MEAN CELL VOLUME 91.2 fL (80-100); MEAN CORPUSCULAR HEMOGLOBIN 31.1 pg (25-34); MEAN CORPUSCULAR HGB CONC 34.1 g/dl (32-36); PLATELET COUNT 209 K/uL (130-400); RED BLOOD COUNT 3.18 M/uL (4.7-6.1); WHITE BLOOD COUNT 5.93 K/uL (4.8-10.8)
[2017-02-04 06:34] LABS: BUN/CREATININE RATIO 9.5 (10-20); CALCIUM 7.8 mg/dl (8.5-10.1); CREATININE 0.99 mg/dl (0.60-1.40); POTASSIUM 3.2 mmol/L (3.5-5.1)
[2017-02-04 07:15] VITALS: BP 126/82; PULSE 70; TEMP 36.5; O2SAT 95
[2017-02-04 08:00] VITALS: O2SAT 95
[2017-02-04] MEDS: HYDROCORTISONE HC 2.5% CRM 30GM TUBE EXT SCH (09:00)
[2017-02-04] MEDS: ZINC SULFATE 220 MG CAP PO SCH (09:00)
[2017-02-04] MEDS: OMEGA-3 (PURIFIED FISH OIL) 1 GM CAP PO SCH (09:00)
[2017-02-04] MEDS: PANTOprazole SOD 40 MG TAB PO SCH (09:00)
[2017-02-04] MEDS: MULTIVITAMIN TAB PO SCH (09:00)
[2017-02-04] MEDS ORDERED: MIDAZOLAM HCL 1 MG/ML 2ML VIAL ONE (11:44)
[2017-02-04] MEDS ORDERED: PROPOFOL IV EMULSION 10 MG/ML 20 ML VIAL IV ONE (11:45)
[2017-02-04] MEDS ORDERED: LIDOCAINE HCL 2% 2 ML VIAL (20MG/ML) ONE (11:45)
[2017-02-04] MEDS ORDERED: ONDANSETRON INJ 2 MG/ML 2 ML VIAL ONE (11:45)
--- NOTE | 2017-02-04 12:18 | GI REPORT ---
Procedure Date: 02/04/2017 11:56 AM Procedure: Colonoscopy Indications: Hematochezia, Rectal bleeding Medicines: Propofol per Anesthesia Complications: No immediate complications. Estimated blood loss: None. Estimated Blood Loss: Estimated blood loss: none. Procedure: Pre-Anesthesia Assessment: - Prior to the procedure, a History and Physical was performed, and patient medications, allergies and sensitivities were reviewed. The patient's tolerance of previous anesthesia was reviewed. - The risks and benefits of the procedure and the sedation options and risks were discussed with the patient. All questions were answered and informed consent was obtained. - Patient identification and proposed procedure were verified prior to the procedure by the physician and the nurse. The procedure was verified in the pre-procedure area in the procedure room. - Mental Status Examination: alert and oriented. Airway Examination: normal oropharyngeal airway and neck mobility. Respiratory Examination: clear to auscultation. CV Examination: normal. Abdominal Examination: bowel sounds present, abdomen soft and non-tender, no masses or organomegaly noted. - ASA Grade Assessment: II - A patient with mild systemic disease. After I obtained informed consent, the scope was passed under direct vision. Throughout the procedure, the patient's blood pressure, pulse, and oxygen saturations were monitored continuously. The scope was introduced through the anus and advanced to the terminal ileum. The colonoscopy was performed without difficulty. The patient tolerated the procedure well. The quality of the bowel preparation was good. Findings: The perianal and digital rectal examinations were normal. Pertinent negatives include normal sphincter tone and no palpable rectal lesions. The terminal ileum appeared normal. Scattered small and large-mouthed diverticula were found in the entire colon. The retroflexed view of the distal rectum and anal verge was normal and showed no anal or rectal abnormalities. Impression: - The examined portion of the ileum was normal. - Shepard-colonic diverticulosis. No fresh or altered blood. - The distal rectum and anal verge are normal on retroflexion view. - No specimens collected. Recommendation: - Return to referring physician as previously scheduled. - Resume regular diet. - Return patient to hospital [facility] for possible discharge same day. Annabel Bo D.O. Annabel Bo, 02/04/2017 12:17:33 PM This report has been signed electronically. Note Initiated On: 02/04/2017 11:56 AM I attest to the content of the Intraoperative Record and orders documented therein, exceptions below
[2017-02-04] MEDS ORDERED: POTASSIUM CHLORIDE 10 MEQ TABCR PO ONE (12:30)
--- NOTE | 2017-02-04 12:59 | Progress Note ---
Progress Note Date of Service Feb 04, 2017. Progress Note Colonoscopy today - no bleeding. No old blood. Presume he had a self limited diverticular bleed Advance diet POssible D/C today. Please call with questions.
--- NOTE | 2017-02-04 13:03 | Anesthesiology Progress Note ---
Anesthesia Post Op Note Date & Time Feb 04, 2017 at 13:02 Vital Signs Pain Intensity: 0 Vital Signs Past 12 Hours Date Time Temp Pulse Resp B/P Pulse Ox O2 Delivery O2 Flow Rate FiO2 02/04/17 12:33 80 20 116/73 96 Room Air 02/04/17 12:17 77 20 98/48 97 Room Air 02/04/17 11:35 36.8 70 20 118/76 96 Room Air 02/04/17 08:00 95 Room Air 02/04/17 07:15 36.5 70 16 126/82 95 Room Air 02/04/17 04:51 36.7 70 16 125/87 96 Room Air Notes Mental Status: alert / awake / arousable, participated in evaluation Pt Amnestic to Procedure: Yes Nausea / Vomiting: adequately controlled Pain: adequately controlled Airway Patency, RR, SpO2: stable & adequate BP & HR: stable & adequate Hydration State: stable & adequate Anesthetic Complications: no major complications apparent
[2017-02-04 13:15] VITALS: BP 111/75; PULSE 75; TEMP 36.3; O2SAT 95
[2017-02-04] MEDS: SODIUM CHLORIDE 0.9% 1000ML 1,000 ML IV SCH (14:44)
--- NOTE | 2017-02-04 14:57 | Progress Note ---
Internal Med Progress Note Date of Service: Feb 04, 2017. Provider Documentation: SUBJECTIVE: Patient is status post colonoscopy and all dressed up ready to go home. No more episodes of bleeding per rectum since yesterday night. No abdominal pain, nausea, vomiting, diarrhea, dizziness, syncope. Tolerated diet-clears OBJECTIVE: Vital Signs-as noted below Exam: General-AAOX3, no distress Neck-Supple, No JVD Lungs-AEBE, no wheezing, rhonchi Heart-S1, S2 normal, no murmurs Abdomen-Soft, non tender, non distended, BS present Extremities-No edema Lab data as noted below. ASSESSMENT & PLAN: ASSESSMENT AND PLAN: 66 year old male with history of GI bleeds, presents to the ED complaining of rectal bleeding x 4 days. BLEEDING PER RECTUM : Resolved Patient came to ED x 2 for bright blood per rectum. Has had it 3-4 times in past , had 3 colonoscopies in last 3-4 years--> Diverticulosis. This time came with 4 episodes of BRBP Diverticular bleeding , self limiting. S/P Colonoscopy- Diverticulosis with no blood noted. -Tolerating PO diet -Cleared for discharge by GI ANEMIA, ACUTE BLOOD LOSS Secondary to GI bleeding as above Hb 14.7--> 12.8-->11 --> 9.9 in 5 days -Likely secondary to above -Monitor H & H outpatient HLD -Continue Statin DVT PROPHYLAXIS: SCDs RE: GI bleed CODE STATUS: FULL CODE DISPO: Observation status--> Changed to admission status Eager to be discharged, already dressed up and ready to leave before even my evaluation. Cleared for discharge by GI Okay to discharge home Vital Signs: Date Time Temp Pulse Resp B/P Pulse Ox O2 Delivery O2 Flow Rate FiO2 02/04/17 13:15 36.3 75 20 111/75 95 Room Air 02/04/17 12:33 80 20 116/73 96 Room Air 02/04/17 12:17 77 20 98/48 97 Room Air 02/04/17 11:35 36.8 70 20 118/76 96 Room Air 02/04/17 08:00 95 Room Air 02/04/17 07:15 36.5 70 16 126/82 95 Room Air 02/04/17 04:51 36.7 70 16 125/87 96 Room Air 02/03/17 23:20 Room Air 02/03/17 23:05 36.7 70 16 125/87 96 Room Air 02/03/17 16:00 Room Air 02/03/17 15:20 36.5 76 17 113/76 94 Room Air Lab Results: Results Past 24 Hours Test 02/04/17 05:27 Range/Units White Blood Count 5.93 4.8-10.8 K/uL Red Blood Count 3.18 4.7-6.1 M/uL Hemoglobin 9.9 14.0-18.0 g/dL Hematocrit 29.0 42-52 % Mean Corpuscular Volume 91.2 80-100 fL Mean Corpuscular Hemoglobin 31.1 25-34 pg Mean Corpuscular Hemoglobin Concent 34.1 32-36 g/dl RDW Standard Deviation 43.5 36.4-46.3 fL RDW Coefficient of Variation 13.2 11.5-14.5 % Platelet Count 209 130-400 K/uL Mean Platelet Volume 9.0 7.4-10.4 fL Sodium Level 144 136-145 mmol/L Potassium Level 3.2 3.5-5.1 mmol/L Chloride Level 110 98-107 mmol/L Carbon Dioxide Level 27 21-32 mmol/L Anion Gap 7.0 3-11 mmol/L Blood Urea Nitrogen 9 7-18 mg/dl Creatinine 0.99 0.60-1.40 mg/dl Est Creatinine Clear Calc Drug Dose 78.8 ml/min Estimated GFR () 92.2 Estimated GFR (Non- 79.6 BUN/Creatinine Ratio 9.5 10-20 Random Glucose 118 70-99 mg/dl Calcium Level 7.8 8.5-10.1 mg/dl
--- NOTE | 2017-02-04 15:02 | Discharge Summary ---
Discharge Summary Date of Service Feb 04, 2017. Discharge Summary Admission Date: Feb 03, 2017 at 12:46 Discharge Date: Feb 04, 2017 Discharge Disposition: Home Principal Diagnosis: 1. Diverticular bleeding 2. Anemia, acute blood loss Secondary Diagnoses/Problems: 1. Hyperlipidemia Procedures: Colonoscopy by Dr Schmitt on 02/04/17 (Diverticulosis) IV fluids Pending Studies/Follow-Up: Instructions / Follow-Up Instructions / Follow-Up MEDICATION CHANGES None Avoid NSAIDs (Advil, Motrin etc) as they can increase risk of bleeding FOLLOW UP 1. Follow up with Dr Rasmussen 02/08/17 at 12:10 PM Medication Reconciliation Continued Medications: Acetaminophen (Tylenol) 500 Mg Tab 500-1000 MG PO PRN for Pain, TAB Glucosamine Sulfate (Glucosamine) 1,000 Mg Tab 1000 MG PO DAILY, TAB Multiple Vitamin (Multivitamin) 1 Tab Tab 1 TAB PO DAILY, TAB Ellijay-3 Fatty Acids (Ellijay 3) 1 Cap Cap 1 CAP PO DAILY Pravastatin Sodium (Pravastatin Sodium) 10 Mg Tab 5 MG PO HS Zinc Gluconate (Zinc) 50 Mg Tab 1 TAB PO DAILY Discontinued Medications: Hydrocortisone/Pramoxine (Proctofoam Hc) Aer 1 APPL GA BID, #10 GM 1 Refill Admission Information HPI (per Admitting provider): Patient seen and examined. 66 year old male with PMHx of HLD, and GI bleeds reports to the ED complaining of "bleeding rectum" x 4 days. Patient reports he started having BRBPR on Saturday, at that time there were occasionally clots of blood. He came to the ED Hgb was stable at 14 and he was discharged home. He reports last night he it started to look like there was more blood in the toilet with BMs and he reports having a BM about every thirty minutes. So he returned to the ED for further evaluation. He reports that his stool is formed and denies diarrhea. He reports that on Saturday he took an Advil for lowback pain and marisela seltzer which had aspirin in it for nasal congestion. He reports he knows he is not to take these medications and that usually when he does he develops GI bleeds. He does not take NSAIDs or blood thinners on a regular basis. He denies fevers, chills, URI symptoms, chest pain, SOB, nausea, vomiting , abdominal pain, diarrhea, dysuria, calf pain and edema. In the ED VS are stable, hgb is 12 from 14 four days ago. He received IVFs. He is resting comfortably. He will be observed for further workup and treatment. Physical Exam (per Admitting): General Appearance: + pertinent finding (Pleasant WD/WN 66 year old male lying in bed in NAD ) Head: normocephalic, atraumatic Eyes: PERRL, EOMI, sclerae normal ENT: hearing grossly normal, pharynx normal Neck: supple, no JVD Respiratory/Chest: chest non-tender, lungs clear, normal breath sounds, no respiratory distress, no accessory muscle use Cardiovascular: regular rate, rhythm, no edema, no gallop, no JVD, no murmur , normal peripheral pulses Abdomen/GI: normal bowel sounds, non tender, soft Back: normal inspection, no CVA tenderness, no muscle spasm Extremities/Musculoskelatal: no calf tenderness, normal capillary refill, no pedal edema Neurologic/Psych: alert, oriented x 3, + pertinent finding (no focal deficits ) Skin: normal color, warm/dry, no rash Lymphatic: no adenopathy Hospital Course ASSESSMENT AND PLAN: 66 year old male with history of GI bleeds, presents to the ED complaining of rectal bleeding x 4 days. BLEEDING PER RECTUM : Resolved Patient came to ED x 2 for bright blood per rectum. Has had it 3-4 times in past , had 3 colonoscopies in last 3-4 years--> Diverticulosis. This time came with 4 episodes of BRBP Diverticular bleeding , self limiting. S/P Colonoscopy- Diverticulosis with no blood noted. -Tolerating PO diet -Cleared for discharge by GI ANEMIA, ACUTE BLOOD LOSS Secondary to GI bleeding as above Hb 14.7--> 12.8-->11 --> 9.9 in 5 days -Likely secondary to above -Monitor H & H outpatient HYPOKALEMIA K is 3.2 today -Replaced with kdur 40 meq -Monitor K level outpatient HLD -Continue Statin DVT PROPHYLAXIS: SCDs RE: GI bleed CODE STATUS: FULL CODE DISPO: Observation status--> Changed to admission status Eager to be discharged, already dressed up and ready to leave before even my evaluation. Cleared for discharge by GI Okay to discharge home Total time spent on discharge = 32 minutes This includes examination of the patient, discharge planning, medication reconciliation, and communication with other providers. Discharge Instructions Discharge Goals Goal(s): Diagnostic testing, Therapeutic intervention Activity Recommendations Activity Limitations: resume your previous activity . Instructions / Follow-Up Instructions / Follow-Up MEDICATION CHANGES None Avoid NSAIDs (Advil, Motrin etc) as they can increase risk of bleeding FOLLOW UP 1. Follow up with Dr Rasmussen 02/08/17 at 12:10 PM Current Hospital Diet Patient's current hospital diet: Regular Diet Discharge Diet Recommended Diet: Regular Diet Pending Studies Studies pending at discharge: no Medical Emergencies . Who to Call and When: Medical Emergencies: If at any time you feel your situation is an emergency, please call 911 immediately. . Non-Emergent Contact Non-Emergency issues call your: Primary Care Provider . . "Provider Documentation" section prepared by Shannen Bar. VTE Core Measure Inpt VTE Proph given/why not?: T.E.D. Stockings, SCD's, Contraindicated (re: GI bleeding)
[2017-02-04 15:04] VITALS: BP 106/71; PULSE 76; TEMP 36.5; O2SAT 96
[2017-02-04 15:18] VITALS: BP 106/71; PULSE 76; TEMP 36.5; O2SAT 96
== END 2017-02-04 15:40 | disposition home or self-care (01) | DRG 378 ==
LOC: ENRESERVDT → ENRESERVTM → C.EDB 07:25 → C.MSW 08:40 → INTOOBSV 08:40 → OBSVTOIN 02-03 12:46
PROVIDERS: ADMIT Internal Medicine; ATTEND Internal Medicine
PROC: 0DJD8ZZ Inspection of Lower Intestinal Tract, Via Natural or Artificial Opening Endoscopic (ICD-10-PCS; principal; 2017-02-04 11:30)
DX: K57.31 Diverticulosis of large intestine without perforation or abscess with bleeding (principal); D62 Acute posthemorrhagic anemia; K60.2 Anal fissure, unspecified; E87.6 Hypokalemia; E78.5 Hyperlipidemia, unspecified; Z87.891 Personal history of nicotine dependence; Z79.899 Other long term (current) drug therapy

== ENCOUNTER 2021-10-03 08:50 | Inpatient (IN) ==
--- NOTE | 2021-10-03 09:16 | Emergency Department Note ---
Impression & Plan Hypoxia, Pneumonia due to COVID-19 virus, Right leg DVT ED Provider Note NAME: JACK REAL AGE: 71 SEX: M : 1950 ARRIVES VIA: Walk-In INFORMANT: patient, ED PROVIDER(S): Kwame Pritchett MD Chief Complaint: Cough, shortness of breath HPI: Patient does present with the above symptoms that been ongoing for approximately 3 days. The patient denies any positional symptoms. The patient did have an injury to the right knee and did have a steroid injection completed several months ago but the patient does still have right lower extremity swelling. No prior history of DVT or PE. The patient does have a history of smoking but quit in his 20s. Patient has had nonproductive cough. No prior history of COPD or asthma. No prior history of heart disease. The patient did take some aspirin today. The patient does complain of some occasional chest tightness believes this may be secondary to his breathing. Patient does state it seems to be worse with walking. The patient denies any nausea vomiting or diaphoresis. Patient denies any trauma or falls. ROS: See HPI for pertinent positives and negatives. A total of 10 systems were reviewed and otherwise negative. Past medical history: See below Surgical history: See below Social history: See below Physical Exam: GENERAL: NAD, wearing a mask, non-toxic. EYE EXAM: Normal conjunctiva. PERRL, no anisocoria and EOM's grossly intact w/o pain. NECK: Supple, no nuchal rigidity, no adenopathy, non-tender. No signs of meningismus. LUNGS: Scant wheezes throughout. Normal chest wall mechanics. HEART: NSR, no MRG. ABDOMEN: Abdomen soft, non-tender, normo-active bowel sounds, no masses, no rebound or guarding. BACK: No CVA TTP. SKIN: No rashes and no bruising. UPPER EXTREMITIES: Upper extremities are grossly normal. LOWER EXTREMITIES: Grossly normal, right lower extremity edema without any erythema or calf pain. Compartments are soft and without crepitus fluctuance drainage or erythema. NEURO EXAM: A&O x3, cranial nerves II-XII grossly intact, normal speech, moves all 4 extremities on command w/o issue. Differential diagnoses: Reactive airway disease, pneumonia, pneumothorax, COPD, CHF, infections, cardiac ischemia, pulmonary embolism, musculoskeletal, gastrointestinal, as well as other pathologies. Course: Patient was seen and evaluated the bedside. Full history physical exam was performed. EKG interpreted by me Normal sinus rhythm, rate of 92, normal intervals, normal axis, no ST changes or T WI. Imaging Studies: See Below Cardiac monitoring: An order was placed for continuous cardiac monitoring. The monitor shows a rate of 82 with sinus rhythm. MDM: Patient was seen due to concern for cough and congestion. Blood work was obtained and the patient was treated symptomatically as the patient did have some wheezing on exam. Former smoker but has not done so in many years. Patient has normal white count H&H and platelet count. Patient's kidney function is unremarkable. Patient is positive for Covid but the patient is vaccinated. Chest x-ray shows likely viral pneumonia. I did convey this to the patient. I did speak the on-call hospitalist Gi Snell PA-C and the patient was admitted by Dr. Wyatt. Patient was admitted to the medicine service. I did review the patient's DVT study which showed extensive DVT of the right lower extremity. I did convey this to the hospitalist service. I did discuss the result with the hospitalist service and the hospitalist was going to order therapeutic Lovenox. Critical Care: I have personally spent 42 minutes of critical care time in direct management of this patient. This includes bedside care, interpretation of diagnostic studies, and testing, discussion with consultants, patient, and family members, and other require inpatient management activities. This 42 minutes is in excess of all separately billable procedures. Past Med/Surg History Medical History (Updated 10/03/21 @ 15:17 by Kwame Pritchett MD) Diverticulitis History of GI diverticular bleed HLD (hyperlipidemia) Surgical History H/O colonoscopy H/O hernia repair Family History Father Diabetes Hypertension Social History Smoking Status: Former smoker Feels Safe at Home: Yes Allergies Allergies Allergy/AdvReac Type Severity Reaction Status Date / Time No Known Allergies Allergy Unverified 10/03/21 13:31 Home Meds Home Medications Medication Instructions Recorded Confirmed amitriptyline 50 mg tablet 25 mg PO HS 10/03/21 10/03/21 glucosamine sulfate 1,000 mg tablet 500 mg PO QAM 10/03/21 10/03/21 multivitamin 1 tab PO DAILY 10/03/21 10/03/21 pravastatin 10 mg tablet 5 mg PO HS 10/03/21 10/03/21 zinc 50 mg tablet 50 mg PO DAILY 10/03/21 10/03/21 Results & Data (ED) Vital Signs Vital Signs - 24 hr 10/03/21 08:50 10/03/21 09:02 10/03/21 09:16 Temperature 36.8 C Temperature Source Temporal Artery Scan Pulse Rate 78 93 H Pulse Rate [Apical] Pulse Rate from SpO2 Sensor 94 H Pulse Rhythm Respiratory Rate 20 22 Respiratory Effort / Characteristics Labored Non-Labored Spontaneous Respiratory Depth Normal Normal Respiratory Pattern Regular Regular Blood Pressure 133/92 Blood Pressure Mean 105 Pulse Oximetry 97 94 96 Oxygen Delivery Method Room Air Room Air Sepsis Recent Fever Within 48 Hours No Sepsis New/Unexplained Change in Mental Status No Sepsis Action Taken by Nursing No Action Required 10/03/21 09:20 10/03/21 09:27 10/03/21 09:30 Temperature Temperature Source Pulse Rate 96 H 88 94 H Pulse Rate [Apical] Pulse Rate from SpO2 Sensor 95 H 94 H Pulse Rhythm Regular Respiratory Rate 17 24 24 Respiratory Effort / Characteristics Respiratory Depth Respiratory Pattern Blood Pressure 157/108 H Blood Pressure Mean 124 Pulse Oximetry 95 95 Oxygen Delivery Method Room Air Sepsis Recent Fever Within 48 Hours Sepsis New/Unexplained Change in Mental Status Sepsis Action Taken by Nursing 10/03/21 09:40 10/03/21 09:47 10/03/21 09:50 Temperature Temperature Source Pulse Rate 91 H 85 Pulse Rate [Apical] 87 Pulse Rate from SpO2 Sensor 91 H Pulse Rhythm Respiratory Rate 29 H 22 22 Respiratory Effort / Characteristics Spontaneous Respiratory Depth Respiratory Pattern Blood Pressure Blood Pressure Mean Pulse Oximetry 95 95 Oxygen Delivery Method Room Air Sepsis Recent Fever Within 48 Hours Sepsis New/Unexplained Change in Mental Status Sepsis Action Taken by Nursing 10/03/21 10:00 10/03/21 10:10 10/03/21 10:20 Temperature Temperature Source Pulse Rate 88 100 H 90 Pulse Rate [Apical] Pulse Rate from SpO2 Sensor Pulse Rhythm Respiratory Rate 25 H 29 H 26 H Respiratory Effort / Characteristics Respiratory Depth Respiratory Pattern Blood Pressure 147/92 H Blood Pressure Mean 110 Pulse Oximetry Oxygen Delivery Method Sepsis Recent Fever Within 48 Hours Sepsis New/Unexplained Change in Mental Status Sepsis Action Taken by Nursing 10/03/21 10:30 10/03/21 10:40 10/03/21 10:50 Temperature Temperature Source Pulse Rate 92 H 96 H Pulse Rate [Apical] 98 H Pulse Rate from SpO2 Sensor Pulse Rhythm Respiratory Rate 26 H 28 H 19 Respiratory Effort / Characteristics Respiratory Depth Respiratory Pattern Blood Pressure Blood Pressure Mean Pulse Oximetry 88 L Oxygen Delivery Method Room Air Sepsis Recent Fever Within 48 Hours Sepsis New/Unexplained Change in Mental Status Sepsis Action Taken by Nursing 10/03/21 11:00 10/03/21 11:30 10/03/21 12:05 Temperature Temperature Source Pulse Rate 94 H 96 H 88 Pulse Rate [Apical] Pulse Rate from SpO2 Sensor 97 H 90 Pulse Rhythm Respiratory Rate 24 27 H 19 Respiratory Effort / Characteristics Respiratory Depth Respiratory Pattern Blood Pressure Blood Pressure Mean Pulse Oximetry 97 95 Oxygen Delivery Method Sepsis Recent Fever Within 48 Hours Sepsis New/Unexplained Change in Mental Status Sepsis Action Taken by Nursing 10/03/21 12:30 10/03/21 13:00 10/03/21 13:30 Temperature Temperature Source Pulse Rate 91 H 88 91 H Pulse Rate [Apical] Pulse Rate from SpO2 Sensor 91 H 88 93 H Pulse Rhythm Respiratory Rate 26 H 28 H 21 Respiratory Effort / Characteristics Respiratory Depth Respiratory Pattern Blood Pressure 158/106 H Blood Pressure Mean 123 Pulse Oximetry 95 95 94 Oxygen Delivery Method Sepsis Recent Fever Within 48 Hours Sepsis New/Unexplained Change in Mental Status Sepsis Action Taken by [facility] Medications Current Medication List: was personally reviewed by me Laboratory Data Attestation: I reviewed the patient's lab results. Result diagrams: 10/03/21 09:20 10/03/21 09:20 Lab Results 10/03/21 10/03/21 10/03/21 Range/Units 09:20 09:20 09:21 WBC 9.69 (4.8-10.8) K/uL RBC 5.00 (4.7-6.1) M/uL Hgb 16.1 (14.0-18.0) g/dL Hct 47.2 (42-52) % MCV 94.4 (80-100) fL MCH 32.2 (25-34) pg MCHC 34.1 (32-36) g/dL RDW Std Deviation 43.2 (36.4-46.3) fL RDW Coeff of Latrice 12.7 (11.5-14.5) % Plt Count 277 (130-400) K/uL MPV 9.6 (7.4-10.4) fL Immature Gran % (Auto) 0.1 % Neut % (Auto) 74.8 % Lymph % (Auto) 12.8 % Charlton % (Auto) 9.4 % Eos % (Auto) 2.2 % Baso % (Auto) 0.7 % Neut # (Auto) 7.25 H (1.4-6.5) K/uL Lymph # (Auto) 1.24 (1.2-3.4) K/uL Charlton # (Auto) 0.91 H (0.11-0.59) K/uL Eos # (Auto) 0.21 (0-0.5) K/uL Baso # (Auto) 0.07 (0-0.2) K/uL Immature Gran # (Auto) 0.01 (0.00-0.02) K/uL Sodium 137 (136-145) mmol/L Potassium 4.0 (3.5-5.1) mmol/L Chloride 103 (98-107) mmol/L Carbon Dioxide 27 (21-32) mmol/L Anion Gap 7.0 (3-11) BUN 12 (7-18) mg/dl Creatinine 1.08 (0.6-1.4) mg/dl Est Cr Clr Drug Dosing 59.5 ml/min Est GFR ( Amer) 80.2 ml/min Est GFR (Non-Af Amer) 69.2 ml/min BUN/Creatinine Ratio 10.6 (10-20) Glucose 105 H (70-99) mg/dl Calcium 9.1 (8.5-10.1) mg/dl Magnesium 2.3 (1.8-2.4) mg/dl Total Bilirubin 0.8 (0.2-1) mg/dl AST 20 (15-37) U/L ALT 26 (12-78) U/L Alkaline Phosphatase 77 (45-117) U/L Troponin I < 0.015 (0-0.045) ng/ml Total Protein 8.4 H (6.4-8.2) gm/dl Albumin 3.4 (3.4-5.0) gm/dl Globulin 5.0 H (2.5-4.0) gm/dl Albumin/Globulin Ratio 0.7 L (0.9-2) SARS-CoV-2 (PCR) POSITIVE A* (Negative) Administered Medications Discontinued Medications Albuterol (Albut/Ipratrop 3mg/0.5mg Neb 3 Ml Vial) 6 ml INH NOW STA Stop: 10/03/21 09:28 Last Admin: 10/03/21 09:47 Dose: 6 ml Documented by: [id number] Sodium Chloride (Nss) 500 mls @ 999 mls/hr IV .Q31M STA Stop: 10/03/21 09:57 Last Infusion: 10/03/21 12:02 Dose: 0 mls/hr Documented by: [id number] Admin: 10/03/21 09:40 Dose: 999 mls/hr Documented by: [id number] Magnesium Sulfate/Dextrose (Magnesium Sulfate / D5w) 1 gm in 100 mls @ 100 mls/hr IV NOW STA Stop: 10/03/21 10:27 Last Infusion: 10/03/21 12:02 Dose: 0 mls/hr Documented by: [id number] Admin: 10/03/21 09:40 Dose: 100 mls/hr Documented by: [id number] Remdesivir 200 mg/ Sodium (Chloride) 250 mls @ 125 mls/hr IV ONE STA; Protocol Stop: 10/03/21 14:27 Last Admin: 10/03/21 13:53 Dose: 125 mls/hr Documented by: [id number] Methylprednisolone (Methylprednisolone 125 Mg/2 Ml Vial) 60 mg IV NOW STA Stop: 10/03/21 09:28 Last Admin: 10/03/21 09:40 Dose: 60 mg Documented by: [id number] Imaging Data Radiologist's Impression: Chest X-Ray 10/03/21 09:27 XR chest 1V portable CLINICAL HISTORY: Dyspnea, wheezing. COMPARISON STUDY: No previous studies for comparison. TECHNIQUE: 1 view of the chest FINDINGS: Single frontal view of the chest demonstrates the cardiomediastinal silhouette to be within normal limits. Patchy interstitial and alveolar opacities are present bilaterally. The findings are most characteristic of a viral type pneumonitis. Covid 19 pneumonia should be excluded. There is no evidence for pleural effusion. There is no evidence for vascular congestion. There is no acute osseous pathology. IMPRESSION: Patchy interstitial and alveolar opacities bilaterally characteristic of a viral type pneumonitis and probable early Covid 19 pneumon ia. ACT 112: Negative or not required by law. Electronically signed by: Gustavo Okeefe M.D. 10/03/2021 10:13 AM Venous Doppler Study 10/03/21 09:27 RIGHT LOWER EXTREMITY VENOUS DOPPLER HISTORY: Right leg swelling. Dyspnea COMPARISON STUDY: None. FINDINGS: The right common femoral vein is patent. There is occlusive thrombus seen within the right superficial femoral vein, popliteal vein, peroneal veins, anterior tibial veins, and posterior tibial veins. IMPRESSION: Extensive acute DVT within the right lower extremity as described above. ACT 112: Negative or not required by law.. Electronically signed by: Td Mcintyre M.D. 10/03/2021 12:00 PM Discharge Plan Visit Data Chief Complaint: Shortness of Breath/Dyspnea Stated Complaint: SOB/LOW BACK PAIN ED Provider: Kwame Pritchett Discharge Problem: Hypoxia, Pneumonia due to COVID-19 virus, Right leg DVT Patient Disposition: Admitted As Inpatient Forms Stand Alone Forms: [facility] Prescriptions Prescriptions: No Action pravastatin 10 mg tablet 5 mg PO HS RF: 0 multivitamin Tablet 1 tab PO DAILY RF: 0 amitriptyline 50 mg Tablet 25 mg PO HS RF: 0 zinc 50 mg Tablet 50 mg PO DAILY RF: 0 glucosamine sulfate 1,000 mg Tablet 500 mg PO QAM RF: 0 Referrals Referrals: Heidy Rasmussen MD [Primary Care Provider] - Discharge Problem: Right leg DVT Qualifiers: Affected thrombotic vein of extremity: femoral Chronicity: acute Qualified Code(s): I82.411 - Acute embolism and thrombosis of right femoral vein
[2021-10-03] MEDS ORDERED: SODIUM CHLORIDE 0.9% 500 ML IV STA (09:27)
[2021-10-03] MEDS ORDERED: methylPREDNISolone 125 MG/2 ML VIAL IV STA (09:27)
[2021-10-03] MEDS ORDERED: ALBUT/IPRATROP 3MG/0.5MG NEB 3 ML VIAL INH STA (09:27)
[2021-10-03] MEDS ORDERED: MAGNESIUM SULFATE / D5W 1 GM/100 ML BAG IV STA (09:28)
[2021-10-03 09:48] LABS: Basophils # (auto) 0.07 K/uL (0-0.2); Basophils % (auto) 0.7 %; Eosinophils # (auto) 0.21 K/uL (0-0.5); Eosinophils % (auto) 2.2 %; Hematocrit (blood only) 47.2 % (42-52); Hemoglobin 16.1 g/dL (14.0-18.0); Immature Granulocytes # (auto) 0.01 K/uL (0.00-0.02); Immature Granulocytes % (auto) 0.1 %; Lymphocytes # (auto) 1.24 K/uL (1.2-3.4); Lymphocytes % (auto) 12.8 %; Mean Corpuscular Hemoglobin 32.2 pg (25-34); Mean Corpuscular Hgb Conc 34.1 g/dL (32-36); Mean Corpuscular Volume 94.4 fL (80-100); Mean Platelet Volume 9.6 fL (7.4-10.4); Monocytes # (auto) 0.91 K/uL (0.11-0.59); Monocytes % (auto) 9.4 %; Neutrophils # (auto) 7.25 K/uL (1.4-6.5); Neutrophils % (auto) 74.8 %; Platelet Count 277 K/uL (130-400); RDW Coefficient of Variation 12.7 % (11.5-14.5); RDW Standard Deviation 43.2 fL (36.4-46.3); White Blood Count 9.69 K/uL (4.8-10.8)
[2021-10-03 10:05] LABS: Alanine Aminotransferase 26 U/L (12-78); Albumin Level 3.4 gm/dl (3.4-5.0); Aspartate Aminotransferase 20 U/L (15-37); BUN Creatinine Ratio 10.6 (10-20); Blood Urea Nitrogen 12 mg/dl (7-18); Calcium 9.1 mg/dl (8.5-10.1); Carbon Dioxide 27 mmol/L (21-32); Chloride 103 mmol/L (98-107); Creatinine Clr Calc Pharmacy 59.5 ml/min; Est GFR (African American) 80.2 ml/min; Est GFR (Non-African American) 69.2 ml/min; Glucose 105 mg/dl (70-99); Magnesium 2.3 mg/dl (1.8-2.4); Sodium 137 mmol/L (136-145)
[2021-10-03 10:10] LABS: Albumin Globulin Ratio 0.7 (0.9-2); Alkaline Phosphatase 77 U/L (45-117); Bilirubin,Total 0.8 mg/dl (0.2-1); Total Protein 8.4 gm/dl (6.4-8.2); Troponin I < 0.015 ng/ml (0-0.045)
--- NOTE | 2021-10-03 10:15 | XRay Report ---
XR chest 1V portable CLINICAL HISTORY: Dyspnea, wheezing. COMPARISON STUDY: No previous studies for comparison. TECHNIQUE: 1 view of the chest FINDINGS: Single frontal view of the chest demonstrates the cardiomediastinal silhouette to be within normal li mits. Patchy interstitial and alveolar opacities are present bilaterally. The findings are most josue cteristic of a viral type pneumonitis. Covid 19 pneumonia should be excluded. There is no evidence fo r pleural effusion. There is no evidence for vascular congestion. There is no acute osseous pathology . IMPRESSION: Patchy interstitial and alveolar opacities bilaterally characteristic of a viral type pne umonitis and probable early Covid 19 pneumonia. ACT 112: Negative or not required by law. Electronically signed by: Gustavo Okeefe M.D. 10/03/2021 10:13 AM
--- NOTE | 2021-10-03 12:00 | History & Physical Report ---
Date of Service October 03, 2021 Assessment & Plan (1) Pneumonia due to COVID-19 virus: (2) Hypoxia: (3) Right leg DVT: Plan: Likely due to #1 (4) HLD (hyperlipidemia): Plan: - Continue statin Plan: - Admit to PCU/COVID unit - Continue supplemental oxygen - Pt agreeable to treatment with remdesevir and dexamethasone - Follow daily labs - Continue home meds as appropriate - PRN IV Lopressor for elevated BP - Therapeutic Lovenox due to DVT in RLE Pt seen and examined with collaborating physician, Dr. Roca. Plan of c are discussed and as outlined above. Code Status: Full Code. Emergency contact is his , Nel Singh - [phone]. Pt requests that she be updated daily. DVT Prophylaxis: on therapeutic Lovenox due to acute DVT Yannick Snell PA-C History of Present Illness Chief Complaint: shortness of breath Primary Care Provider: Heidy Rasmussen MD This is a 71 y/o male with a PMH of dyslipidemia and elevated PSA who presents to the ED today with progressive shortness of breath for the past 3-4 days. Pt notes that he developed cough, progressive VINSON, fatigue and mild COHN about 4 days ago. Symptoms have been getting worse so he came in for evaluation today. He was noted to be hypoxic in the ED at 88% on RA but improved with 2 L of oxygen to the 90s so he was referred for admission. Pt was vaccinated for COVID with Moderna in January, February, and was scheduled for a booster next week. Pt denies chest pain, palpitations, dizziness, N/V/D. He has been using cough medicine, decongestant and Tylenol for his symptoms at home. He denies prior hx of underlying lung disease or HTN. He has also noted progressive swelling of the RLE over the past few days. Allergies Allergy/AdvReac Type Severity Reaction Status Date / Time No Known Allergies Allergy Unverified 10/03/21 13:31 Home Medications Medication Instructions Recorded Confirmed Type amitriptyline 50 mg tablet 25 mg PO HS 10/03/21 10/03/21 History glucosamine sulfate 1,000 mg tablet 500 mg PO QAM 10/03/21 10/03/21 History multivitamin 1 tab PO DAILY 10/03/21 10/03/21 History pravastatin 10 mg tablet 5 mg PO HS 10/03/21 10/03/21 History zinc 50 mg tablet 50 mg PO DAILY 10/03/21 10/03/21 History Past Med/Surg History Medical History (Updated 10/03/21 @ 13:14 by Torrie Snell PA-C) Diverticulitis History of GI diverticular bleed HLD (hyperlipidemia) Surgical History H/O colonoscopy H/O hernia repair Family History Father Diabetes Hypertension Social History Smoking Status: Former smoker Feels Safe at Home: Yes Review of Systems Review of Systems: All systems reviewed & are unremarkable except as noted in HPI & below Constitutional: + fatigue; no fever, no chills and no sweats Ear, Nose, Mouth, Throat: no nasal congestion, no nasal discharge and no sore throat Respiratory: + cough, + dyspnea, + dyspnea on exertion and + wheezing; no pain with cough Cardiovascular: + edema (in RLE); no chest pain, no palpitations and no syncope Gastrointestinal: no abdominal pain, no nausea, no vomiting and no diarrhea/loose stools Genitourinary: no dysuria or no hematuria Musculoskeletal: + back pain (upper mid past few days); no neck pain Integumentary: no rash and no yellowing of the skin Neurologic: + headache(s) (mild); no seizure-like activity, no dizziness and no syncope Physical Exam Constitutional: well developed and well nourished; no acute distress Eyes: + anicteric sclerae Neck: trachea midline Respiratory: no respiratory distress and does not use accessory muscles Auscultation: + diminished lung sounds, + crackles (at bases) and + wheezes (expiratory throughout (right > left)); no rhonchi Cardiovascular: Rate/Rhythm: regular rhythm and + tachycardic Vessels: radial pulses present Extremities: + edema (1+ pitting RLE) Gastrointestinal (Abdomen): Inspection/Auscultation: normal bowel sounds; abdomen not distended Percussion/Palpation: abdomen soft; abdomen nontender Musculoskeletal: Head/Neck/Chest: normocephalic, head atraumatic and neck supple Skin: no jaundice Neurologic: moves all extremities; no focal motor deficits Psychiatric: A+Ox3, euthymic affect Results & Data Results & Data ([facility]) Vital Signs (Past 12 Hours) Vital Signs Temp Pulse Pulse Resp BP Pulse Ox 10/03/21 10:40 96 H 28 H 10/03/21 10:30 92 H 26 H 10/03/21 10:20 90 26 H 10/03/21 10:10 100 H 29 H 10/03/21 10:00 88 25 H 147/92 H 10/03/21 09:50 85 22 10/03/21 09:47 87 22 95 10/03/21 09:40 91 H 29 H 95 10/03/21 09:30 94 H 24 157/108 H 95 10/03/21 09:27 88 24 10/03/21 09:20 96 H 17 95 10/03/21 09:16 93 H 22 96 10/03/21 09:02 36.8 C 78 20 133/92 94 10/03/21 08:50 97 Laboratory Results Laboratory Results - last 24 hr 10/03/21 10/03/21 10/03/21 09:20 09:20 09:21 WBC 9.69 RBC 5.00 Hgb 16.1 Hct 47.2 MCV 94.4 MCH 32.2 MCHC 34.1 RDW Std Deviation 43.2 RDW Coeff of Latrice 12.7 Plt Count 277 MPV 9.6 Immature Gran % (Auto) 0.1 Neut % (Auto) 74.8 Lymph % (Auto) 12.8 [place] % (Auto) 9.4 Eos % (Auto) 2.2 Baso % (Auto) 0.7 Neut # (Auto) 7.25 H Lymph # (Auto) 1.24 [place] # (Auto) 0.91 H Eos # (Auto) 0.21 Baso # (Auto) 0.07 Immature Gran # (Auto) 0.01 Sodium 137 Potassium 4.0 Chloride 103 Carbon Dioxide 27 Anion Gap 7.0 BUN 12 Creatinine 1.08 Est Cr Clr Drug Dosing 59.5 Est GFR ( Amer) 80.2 Est GFR (Non-Af Amer) 69.2 BUN/Creatinine Ratio 10.6 Glucose 105 H Calcium 9.1 Magnesium 2.3 Total Bilirubin 0.8 AST 20 ALT 26 Alkaline Phosphatase 77 Troponin I < 0.015 Total Protein 8.4 H Albumin 3.4 Globulin 5.0 H Albumin/Globulin Ratio 0.7 L SARS-CoV-2 (PCR) POSITIVE A* Diagnostic Findings Chest X-ray 10/03/21 - IMPRESSION: Patchy interstitial and alveolar opacities bilaterally characteristic of a viral type pneumonitis and probable early Covid 19 pneumonia. RLE Venous Duplex - IMPRESSION:Extensive acute DVT within the right lower extremity as described above. Medications Administered Discontinued Medications Albuterol (Albut/Ipratrop 3mg/0.5mg Neb 3 Ml Vial) 6 ml INH NOW STA Stop: 10/03/21 09:28 Last Admin: 10/03/21 09:47 Dose: 6 ml Documented by: [id number] Sodium Chloride (Nss) 500 mls @ 999 mls/hr IV .Q31M STA Stop: 10/03/21 09:57 Last Admin: 10/03/21 09:40 Dose: 999 mls/hr Documented by: [id number] Magnesium Sulfate/Dextrose (Magnesium Sulfate / D5w) 1 gm in 100 mls @ 100 mls/hr IV NOW STA Stop: 10/03/21 10:27 Last Admin: 10/03/21 09:40 Dose: 100 mls/hr Documented by: [id number] Methylprednisolone (Methylprednisolone 125 Mg/2 Ml Vial) 60 mg IV NOW STA Stop: 10/03/21 09:28 Last Admin: 10/03/21 09:40 Dose: 60 mg Documented by: [id number] Supervising Physician Co-Signing Physician Notes Pt is a 71 Y/o M with hx of HLD, DJD, Scrotal pain (on Amitriptyline) admitted for COVID pneumonia with hypoxia. -pt received Moderna x2 on 02/2021 -symptoms started 1 week ago -Pt also complained of R LE edema Exam: -NAD, NC in place -Abd: ND, NT, soft -MSk: RLE pitting edema, no erythema -Psych: AAOx3, normal affect A/P: COVID pneumonia with hypoxia: - symptoms started 1 week ago - will start the pt on Dexamethasone and Remdesivir - normal GFr and LFTs -continue on oxygen supplement right now -encourage frequent change of position (including proning) -daily CMP and CRP R LE DVT: provoked -will start the pt on therapeutic Lovenox dose -will discharge on DOAC Elevated BP: -no hx of HTN - for now will prn BP meds (Lopressor) Agree with A/P by Torrie Snell PA-C
--- NOTE | 2021-10-03 12:02 | Ultrasound Report ---
RIGHT LOWER EXTREMITY VENOUS DOPPLER HISTORY: Right leg swelling. Dyspnea COMPARISON STUDY: None. FINDINGS: The right common femoral vein is patent. There is occlusive thrombus seen within the right superficial femoral vein, popliteal vein, peroneal veins, anterior tibial veins, and posterior tibial veins. IMPRESSION: Extensive acute DVT within the right lower extremity as described above. ACT 112: Negative or not required by law.. Electronically signed by: Td Mcintyre M.D. 10/03/2021 12:00 PM
[2021-10-03] MEDS ORDERED: REMDESIVIR 200 MG in SODIUM CHLORIDE 0.9% 210 ML IV STA (12:28)
[2021-10-03] MEDS ORDERED: METOPROLOL TARTRATE 1 MG/ML VIAL IV PRN (12:49)
[2021-10-03] MEDS ORDERED: Heparin IV Adult Wt-Based Standard *NO* Bolus Protocol IV ONE (15:17)
[2021-10-03] MEDS ORDERED: HEPARIN SODIUM/DEXTROSE 25,000 UNITS/500 ML BAG IV SCH (15:45)
[2021-10-03] MEDS ORDERED: ACETAMINOPHEN 325 MG TAB PO PRN (19:31)
[2021-10-03] MEDS: PRAVASTATIN SOD 10 MG TAB PO SCH (21:11)
[2021-10-03] MEDS: ENOXAPARIN 80 MG/0.8 ML SYR SQ SCH (21:11)
[2021-10-03] MEDS: guaiFENesin 600 MG TABCR PO SCH (21:11)
[2021-10-03] MEDS: AMITRIPTYLINE HCL 25 MG TAB PO SCH (21:11)
[2021-10-04] MEDS: ENOXAPARIN 80 MG/0.8 ML SYR SQ SCH ×2 (08:44→22:15)
[2021-10-04] MEDS: guaiFENesin 600 MG TABCR PO SCH ×2 (08:45→22:15)
[2021-10-04] MEDS ORDERED: MULTIVITAMIN TAB PO SCH (09:00)
[2021-10-04] MEDS ORDERED: PANTOprazole 40 MG TAB PO SCH (09:00)
[2021-10-04] MEDS ORDERED: dexAMETHasone 6 MG in SYRINGE 0 ML IV SCH (09:00)
[2021-10-04] MEDS ORDERED: ZINC SULFATE 220 MG CAPSULE PO SCH (09:00)
[2021-10-04] MEDS ORDERED: SODIUM CHLORIDE 0.9% 10ML FLUSH IV SCH (12:00)
[2021-10-04] MEDS ORDERED: REMDESIVIR 100 MG in SODIUM CHLORIDE 0.9% 230 ML IV SCH (12:00)
--- NOTE | 2021-10-04 15:33 | Electrocardiogram Report ---
Test Reason : Blood Pressure : / mmHG Vent. Rate : 092 BPM Atrial Rate : 092 BPM P-R Int : 152 ms QRS Dur : 084 ms QT Int : 352 ms P-R-T Axes : 002 -56 062 degrees QTc Int : 435 ms Normal sinus rhythm Left anterior fascicular block Abnormal ECG When compared with ECG of 02-FEB-2017 08:08, Premature ventricular complexes are no longer Present Confirmed by Judah Bonilla ([id number]) on 10/04/2021 3:33:27 PM Referred By: REFERRED SELF Confirmed By:Judah Bonilla
--- NOTE | 2021-10-04 17:36 | Hospitalist Progress Note ---
Date of Service October 04, 2021 Assessment & Plan (1) Pneumonia due to COVID-19 virus: Plan: Vaccinated with maternal vaccine in Shortness of breath for last 3 or 4 days 1 episode of desaturation at home but has been reasonably well in the emergency room Has been getting dexamethasone and remdesivir Cough suppressant, oxygen as needed and use of spirometry He wants to go home (2) Hypoxia: (3) Right leg DVT: Plan: Noted to have extensive DVT involving the right leg Started on Lovenox Plan to discharge on DOAC (4) HLD (hyperlipidemia): Plan: - Continue statin Plan: High blood pressure We will monitor Code Status: Full Code. Emergency contact is his , Nel Singh - [phone]. Pt requests that she be updated daily. DVT Prophylaxis: on therapeutic Lovenox due to acute DVT Admission and Anticipated Discharge Date Admission Date: October 03, 2021 Subjective 10/04/2021 The patient was seen and examined in emergency room in the holding area He wants to be discharged and he desperately wants to go home Saturating normally on room air but has shortness of breath with exertion Has extensive right lower leg DVT Review of Systems Review of Systems: All systems reviewed and are unremarkable except as noted below Respiratory: Shortness of breath with exertion Musculoskeletal: Right leg discomfort Physical Exam Physical Exam: Lying in bed without any acute distress Constitutional: well developed, well nourished and + ill appearing Eyes: PERRL, conjunctivae normal, anicteric sclerae ENMT: external ear and nose normal, oropharynx normal Neck: trachea midline, no thyromegaly Respiratory: no respiratory distress and no cough Auscultation: + diminished lung sounds; no crackles Cardiovascular: Rate/Rhythm: regular rate and regular rhythm; not tachycardic Heart Sounds: normal S1 and normal S2; no murmur Extremities: + edema (Right lower extremity) Gastrointestinal (Abdomen): Inspection/Auscultation: normal bowel sounds; abdomen not distended Percussion/Palpation: abdomen soft; abdomen nontender Musculoskeletal: No acute arthritis in any joint Neurologic: Alert, awake and oriented x3 Results & Data Results & Data ([facility]) Vital Signs (Past 12 Hours) Vital Signs Temp Pulse Pulse Resp BP Pulse Ox 10/04/21 14:00 85 17 96 10/04/21 13:00 94 H 17 10/04/21 12:44 92 H 20 157/96 H 93 10/04/21 12:17 85 18 10/04/21 11:22 84 18 10/04/21 08:46 36.7 C 93 H 20 159/110 H 94 Medications Administered Current Inpatient Medications Acetaminophen (Acetaminophen 325 Mg Tab) 650 mg PO Q4H PRN PRN Reason: Pain or Fever Stop: 11/02/21 19:30 Last Admin: 10/03/21 20:02 Dose: 650 mg Documented by: Amitriptyline HCl (Amitriptyline Hcl 25 Mg Tab) 25 mg PO HS [facility] Stop: 11/02/21 20:59 Last Admin: 10/03/21 21:11 Dose: 25 mg Documented by: Enoxaparin Sodium (Enoxaparin 80 Mg/0.8 Ml Syr) 80 mg SQ Q12H [facility] Stop: 11/02/21 19:44 Last Admin: 10/04/21 08:44 Dose: 80 mg Documented by: Guaifenesin (Guaifenesin 600 Mg Tabcr) 600 mg PO Q12 [facility] Stop: 11/02/21 20:59 Last Admin: 10/04/21 08:45 Dose: 600 mg Documented by: Remdesivir 100 mg/ Sodium (Chloride) 250 mls @ 250 mls/hr IV Q24H [facility]; Protocol Stop: 10/07/21 12:59 Last Infusion: 10/04/21 14:44 Dose: Infused Documented by: Dexamethasone 6 mg/ Syringe 1.5 mls @ 1 mls/min IV DAILY [facility] Stop: 10/14/21 08:59 Last Admin: 10/04/21 08:44 Dose: 1 mls/min Documented by: Metoprolol Tartrate (Metoprolol Tartrate 1 Mg/Ml Vial) 10 mg IV Q6 PRN PRN Reason: Hypertension Stop: 11/02/21 17:59 Multivitamins ([facility]ivitamin Tab) [facility] [place]: 11/03/21 08:59 Last Admin: 10/04/21 08:44 Dose: 1 tab Documented by: Pantoprazole Sodium (Pantoprazole 40 Mg Tab) 40 mg PO QAM [facility] Stop: 11/03/21 08:59 Last Admin: 10/04/21 08:44 Dose: 40 mg Documented by: Pravastatin Sodium (Pravastatin Sod 10 Mg Tab) 5 mg PO HS [facility] Stop: 11/02/21 20:59 Last Admin: 10/03/21 21:11 Dose: 5 mg Documented by: Sodium Chloride (Sodium Chloride 0.9% 10ml Flush) 30 ml IV Q24H [facility] Stop: 10/07/21 12:01 Last Admin: 10/04/21 14:44 Dose: 30 ml Documented by: Zinc Sulfate (Zinc Sulfate 220 Mg Capsule) 220 mg PO DAILY [facility] Stop: 11/03/21 08:59 Last Admin: 10/04/21 08:45 Dose: 220 mg Documented by: (1) Right leg DVT Affected thrombotic vein of extremity: femoral Chronicity: acute Qualified Code(s): I82.411 - Acute embolism and thrombosis of right femoral vein
[2021-10-04] MEDS: PRAVASTATIN SOD 10 MG TAB PO SCH (22:14)
[2021-10-04] MEDS: AMITRIPTYLINE HCL 25 MG TAB PO SCH (22:15)
--- NOTE | 2021-10-05 16:37 | Discharge Summary ---
Date of Service October 05, 2021 Admission HPI Per Admitting Provider This is a 71 y/o male with a PMH of dyslipidemia and elevated PSA who presents to the ED today with progressive shortness of breath for the past 3-4 days. Pt notes that he developed cough, progressive VINSON, fatigue and mild COHN about 4 days ago. Symptoms have been getting worse so he came in for evaluation today. He was noted to be hypoxic in the ED at 88% on RA but improved with 2 L of oxygen to the 90s so he was referred for admission. Pt was vaccinated for COVID with Moderna in January, February, and was scheduled for a booster next week. Pt denies chest pain, palpitations, dizziness, N/V/D. He has been using cough medicine, decongestant and Tylenol for his symptoms at home. He denies prior hx of underlying lung disease or HTN. He has also noted progressive swelling of the RLE over the past few days. Admission Exam Per Admitting Provider Constitutional: well developed and well nourished; no acute distress Eyes: + anicteric sclerae Neck: trachea midline Respiratory: no respiratory distress and does not use accessory muscles Auscultation: + diminished lung sounds, + crackles (at bases) and + wheezes (expiratory throughout (right > left)); no rhonchi Cardiovascular: Rate/Rhythm: regular rhythm and + tachycardic Vessels: radial pulses present Extremities: + edema (1+ pitting RLE) Gastrointestinal (Abdomen): Inspection/Auscultation: normal bowel sounds; abdomen not distended Percussion/Palpation: abdomen soft; abdomen nontender Musculoskeletal: Head/Neck/Chest: normocephalic, head atraumatic and neck supple Skin: no jaundice Neurologic: moves all extremities; no focal motor deficits Psychiatric: A+Ox3, euthymic affect Principal Diagnosis Signed out AMA with diagnosis of right lower extremity DVT and COVID-19 virus infection Discharge Exam Lying in bed without any acute distress Constitutional well developed, well nourished and + ill appearing Eyes PERRL, conjunctivae normal, anicteric sclerae ENMT external ear and nose normal, oropharynx normal Neck trachea midline, no thyromegaly Respiratory no respiratory distress and no cough Auscultation: + diminished lung sounds; no crackles Cardiovascular Rate/Rhythm: regular rate and regular rhythm; not tachycardic Heart Sounds: normal S1 and normal S2; no murmur Extremities: + edema (Right lower extremity) Gastrointestinal (Abdomen) Inspection/Auscultation: normal bowel sounds; abdomen not distended Percussion/Palpation: abdomen soft; abdomen nontender Discharge Data Allergies Allergy/AdvReac Type Severity Reaction Status Date / Time No Known Allergies Allergy Unverified 10/05/21 11:44 Consultations 10/03/21 11:48 ED Decision to Admit Stat Ordered Studies 10/03/21 09:27 US venous doppler LE RT Stat Hospital Course (1) Pneumonia due to COVID-19 virus: Vaccinated with maternal vaccine in January/February Shortness of breath for last 3 or 4 days 1 episode of desaturation at home but has been reasonably well in the emergency room Has been getting dexamethasone and remdesivir Cough suppressant, oxygen as needed and use of spirometry He wants to go home (2) Hypoxia: (3) Right leg DVT: Noted to have extensive DVT involving the right leg Started on Lovenox Plan to discharge on DOAC (4) HLD (hyperlipidemia): - Continue statin High blood pressure We will monitor Code Status: Full Code. Emergency contact is his , Nel Singh - [phone]. Pt requests that she be updated daily. DVT Prophylaxis: on therapeutic Lovenox due to acute DVT Total Time Total Time Spent Total Time Spent (In Minutes): 20 minutes Discharge Plan Discharge Items Patient Disposition: Against Medical Advice Reason For Visit: COVID PNEUMONIA, HYPOXIA Activity: As commented below Activity Comment: AMA Non-emergency contact: Primary Care Provider Follow-up/Referrals: Heidy Rasmussen MD [Primary Care Provider] - Pending Studies at Discharge: No Stand-Alone Forms: [facility] [employer] [facility], Smoking Cessation Medications and DC Order Prescriptions: Continued pravastatin 10 mg tablet 5 mg PO HS RF: 0 multivitamin Tablet 1 tab PO DAILY RF: 0 amitriptyline 50 mg Tablet 25 mg PO HS RF: 0 zinc 50 mg Tablet 50 mg PO DAILY RF: 0 glucosamine sulfate 1,000 mg Tablet 500 mg PO QAM RF: 0 Eliquis 5 mg tablet See Rx Instructions .ROUTE .COMPLEX Qty: 74 RF: 0 Discharge Orders: Left Against Medical Advice (Routine); Ordered 10/05/21 Ordered By: Marisa Eid Admission Data Admit Date/Time: 10/03/21 12:27 Attending Provider: Marisa Eid Admit Provider: Ricardo Roca Primary Care Provider: Heidy Rasmussen Other Providers: Ricardo Roca
== END 2021-10-05 07:15 | disposition left against medical advice (07) | DRG 177 ==
LOC: ED 08:50 → EDINP 12:27 → SUATTDRO 12:27 → EDINP 19:20

== ENCOUNTER 2021-10-05 09:06 | Inpatient (IN) ==
[2021-10-05] MEDS ORDERED: ENOXAPARIN INJ 120 MG/0.8 ML SYR SQ ONE (11:11)
--- NOTE | 2021-10-05 11:56 | Emergency Department Note ---
Impression & Plan Right leg DVT, Pneumonia due to COVID-19 virus ED Provider Note CHIEF COMPLAINT: COVID-19, right lower extremity DVT HISTORY OF PRESENTING ILLNESS: This is a 71-year-old male who presents to the emergency department by private vehicle with concern about his right lower extremity DVT. Patient states that he was admitted to the hospital 2 days ago for his COVID-19 and an extensive right lower extremity DVT. Patient was apparently hypoxic at the time of his admission. The patient states that he left AMA last night because he wanted to go home to be with his for Thanksgiving. He states he came back today because he is concerned about the treatment of his blood clot and does not have medication for this. He denies any pain and rates his pain level 0/10. He denies any chest pain, chest tightness, shortness of breath, palpitations, dizziness or syncope, coughing up blood, fevers or chills. REVIEW OF SYSTEMS: A complete 10 point review of systems was reviewed with the patient with pertinent positives and negatives as per history of present illness. All else were negative. PAST MEDICAL HISTORY: Hyperlipidemia, history of hernia repair, right leg DVT SOCIAL HISTORY: Lives at home with family, he is a former smoker ALLERGIES: No known allergies PHYSICAL EXAM: CONSTITUTIONAL: Pleasant and cooperative. Nontoxic-appearing and in no acute distress. Well appearing and well nourished. HEENT: Normocephalic, atraumatic. PERRL, EOMI. NECK: Supple, full active range of motion without discomfort. RESPIRATORY: Diminished in bases with fine crackles, no wheezing, rhonchi, or stridor heard. Nonlabored breathing, no tachypnea, no accessory muscle use. Equal expansion bilaterally. CARDIOVASCULAR: Regular rate and rhythm with no murmurs, rubs or gallops. Normal peripheral perfusion. GASTROINTESTINAL: Soft, nontender, nondistended. No palpable masses or HSM. Bowel sounds present in all quadrants. MUSCULOSKELETAL: Full range of motion of all joints without discomfort. Right lower extremity swelling and tenderness. 2+ DP pulse, brisk capillary refill. Sensation intact to light touch. INTEGUMENTARY: No rash or other significant dermatologic conditions noted. NEUROLOGIC: Alert and oriented X 4 with normal affect. Normal strength and sensation in all 4 extremities. Normal speech. Normal gait observed. ED COURSE AND MEDICAL DECISION MAKING: CC: Patient presenting with complaint of right lower extremity DVT DIFFERENTIAL DIAGNOSIS: Includes, but not limited to DVT, PE, COVID-19 infection, need for anticoagulation, among others. MEDICATION RECONCILIATION: I attest that I have personally reviewed the patient's current medication list. INITIAL VITAL SIGNS REVIEW: I reviewed the patient's initial vital signs and interpret them as follows: T: Afebrile; BP: Hypertensive; HR: Within normal limits; RR: Within normal limits; Pulse Ox: Within normal limits on room air. MDM SUMMARY: Patient was evaluated at bedside, history and physical exam performed. The patient was evaluated under full COVID-19 precautions. The patient presents with concern for his right lower extremity DVT, noting that he does not currently have treatment for this. The patient was admitted 2 days ago for COVID-19, at which time he was found to be hypoxic and had an extensive right lower extremity DVT. The patient was being treated for Lovenox while hospitalized. The patient apparently left AMA last night, and he notes that he does not have any further medication to treat his DVT at home. The patient seems reluctant to be readmitted to the hospital and prefers to be home. He notes that his symptoms have been significantly improving and he is not hypoxic here today on room air. He denies any chest pain or shortness of breath. I discussed with the ED pharmacist who felt it was reasonable to give the patient a 24-hour dose of Lovenox now and prescribed the patient Eliquis to start tomorrow, as the pharmacies are largely closed today due to the holiday. The patient was treated with Lovenox 120 mg subcutaneous injection to cover for his DVT treatment. A 30-day prescription for Eliquis was sent to the patient's pharmacy. Patient discussed with Dr. Dupree, who agrees with my assessment, plan, and disposition. I did speak on the phone with Dr. Eid, the [facility] hospitalist who was caring for the patient during his admission. He did feel that the patient should be readmitted for further monitoring, and recommended this for the patient today. I spoke with the patient again regarding Dr. Eid's recommendation for admission, the patient did agree to be readmitted at this time. Dr. Eid will admit the patient. The patient was stable at the time of admission. The chart was completed utilizing [employer] voice recognition software. Grammatical errors, random word insertions, pronoun errors, and incomplete sentences are an occasional consequence of this system due to software limitations, ambient noise, and hardware issues. Any formal questions or concerns about the content, text, or information contained within the body of this dictation should be directly addressed to the nurse practitioner for clarification. Past Med/Surg History Medical History (Updated 10/05/21 @ 16:34 by SUNIL Pope) Diverticulitis History of GI diverticular bleed HLD (hyperlipidemia) Surgical History H/O colonoscopy H/O hernia repair Family History Father Diabetes Hypertension Social History Smoking Status: Former smoker Hx Alcohol Use: No Hx Substance Use: No Preferred Language: Lebanese Communication Ability: Effective Catalogue Librarian Required: No Beliefs That Will Affect Care: None Current Living Situation: Spouse Feels Safe at Home: Yes Assistive Devices: Denture - Upper and Denture - Lower Allergies Allergies Allergy/AdvReac Type Severity Reaction Status Date / Time No Known Allergies Allergy Unverified 10/05/21 11:44 Home Meds Home Medications Medication Instructions Recorded Confirmed amitriptyline 50 mg tablet 25 mg PO HS 10/03/21 10/05/21 glucosamine sulfate 1,000 mg tablet 500 mg PO QAM 10/03/21 10/05/21 multivitamin 1 tab PO DAILY 10/03/21 10/05/21 pravastatin 10 mg tablet 5 mg PO HS 10/03/21 10/05/21 zinc 50 mg tablet 50 mg PO DAILY 10/03/21 10/05/21 Previous Rx's Medication Instructions Recorded apixaban 5 mg tablet (Eliquis) See Rx Instructions .ROUTE 10/05/21 .COMPLEX #74 tab Results & Data (ED) Vital Signs Vital Signs - 24 hr 10/05/21 09:12 10/05/21 11:08 10/05/21 12:29 Temperature 36.7 C Temperature Source Temporal Artery Scan Pulse Rate 91 H Pulse Rate [Left] 67 68 Pulse Rhythm Regular Pulse Rhythm [Left] Regular Regular Pulse Strength Normal Pulse Strength [Left] Normal Normal Respiratory Rate 20 18 19 Respiratory Effort / Characteristics Non-Labored Spontaneous Non-Labored Non-Labored Respiratory Depth Normal Normal Normal Respiratory Pattern Regular Regular Blood Pressure 176/102 H Blood Pressure [Left Arm] 142/74 H 148/99 H Blood Pressure Mean 126 Blood Pressure Mean [Left Arm] 96 115 Blood Pressure Position Sitting Blood Pressure Position [Left Arm] Sitting Sitting Pulse Oximetry 95 98 98 Oxygen Delivery Method Room Air Room Air Room Air Sepsis Recent Fever Within 48 Hours No Sepsis New/Unexplained Change in Mental Status No Sepsis Action Taken by Nursing No Action Required 10/05/21 14:00 10/05/21 15:15 10/05/21 15:29 Temperature 37 C Temperature Source Oral Pulse Rate Pulse Rate [Left] 96 H 73 68 Pulse Rhythm Pulse Rhythm [Left] Regular Regular Regular Pulse Strength Pulse Strength [Left] Normal Normal Normal Respiratory Rate 18 19 18 Respiratory Effort / Characteristics Non-Labored Non-Labored Spontaneous Non-Labored Respiratory Depth Normal Normal Normal Respiratory Pattern Regular Regular Regular Blood Pressure Blood Pressure [Left Arm] 144/91 H 126/102 H 126/102 H Blood Pressure Mean Blood Pressure Mean [Left Arm] 108 110 110 Blood Pressure Position Blood Pressure Position [Left Arm] Lying Sitting Lying Pulse Oximetry 96 97 99 Oxygen Delivery Method Room Air Room Air Room Air Sepsis Recent Fever Within 48 Hours Sepsis New/Unexplained Change in Mental Status Sepsis Action Taken by Nursing Administered Medications Amlodipine Besylate (Amlodipine Besylate 5 Mg Tab) 5 mg PO QAM [facility] Stop: 11/04/21 12:59 Last Admin: 10/05/21 15:30 Dose: 5 mg Documented by: [id number] Discontinued Medications Enoxaparin Sodium (Enoxaparin Inj 120 Mg/0.8 Ml Syr) 120 mg SQ NOW ONE Stop: 10/05/21 11:12 Last Admin: 10/05/21 11:26 Dose: 120 mg Documented by: [id number] Discharge Plan Visit Data Chief Complaint: Respiratory Problems Stated Complaint: COVID POSITIVE/POSSIBLE BLOOD CLOT ED Provider: George Dupree ED Midlevel Provider: Laura Alva Discharge Problem: Right leg DVT, Pneumonia due to COVID-19 virus Patient Disposition: Admitted As Inpatient Condition: Good Forms Stand Alone Forms: [facility] Prescriptions Prescriptions: New Eliquis 5 mg tablet See Rx Instructions .ROUTE .COMPLEX Qty: 74 RF: 0 No Action pravastatin 10 mg tablet 5 mg PO HS RF: 0 multivitamin Tablet 1 tab PO DAILY RF: 0 amitriptyline 50 mg Tablet 25 mg PO HS RF: 0 zinc 50 mg Tablet 50 mg PO DAILY RF: 0 glucosamine sulfate 1,000 mg Tablet 500 mg PO QAM RF: 0 Referrals Referrals: Heidy Rasmussen MD [Primary Care Provider] - Discharge Problem: Right leg DVT Qualifiers: Chronicity: acute
--- NOTE | 2021-10-05 12:38 | History & Physical Report ---
Date of Service October 05, 2021 Assessment & Plan (1) Pneumonia due to COVID-19 virus: Plan: Vaccinated with maternal vaccine in Shortness of breath for last 3 or 4 days 1 episode of desaturation at home but has been reasonably well in the emergency room Has been getting dexamethasone and remdesivir Cough suppressant, oxygen as needed and use of spirometry Signed out AMA and came back early this morning Will not give any more remdesivir but will continue dexamethasone Saturating normally on room air (2) Right leg DVT: Plan: Noted to have extensive DVT involving the right leg Started on Lovenox Plan to discharge on DOAC Lovenox restarted and will put him on DOAC on discharge tomorrow (3) HLD (hyperlipidemia): Plan: Continue statin Plan: DVT prophylaxis Lovenox CODE STATUS Full History of Present Illness Chief Complaint: Right leg swelling and shortness of breath with cough Primary Care Provider: Heidy Rasmussen MD This is the admission note from yesterday; He is a 71 y/o male with a PMH of dyslipidemia and elevated PSA who presents to the ED today with progressive shortness of breath for the past 3-4 days. Pt notes that he developed cough, progressive VINSON, fatigue and mild COHN about 4 days ago. Symptoms have been getting worse so he came in for evaluation today. He was noted to be hypoxic in the ED at 88% on RA but improved with 2 L of oxygen to the 90s so he was referred for admission. Pt was vaccinated for COVID with Moderna in January,, and was scheduled for a booster next week. Pt denies chest pain, palpitations, dizziness, N/V/D. He has been using cough medicine, decongestant and Tylenol for his symptoms at home. He denies prior hx of underlying lung disease or HTN. He has also noted progressive swelling of the RLE over the past few days. He signed out AMA early this morning and came back thereafter as because he thought it was long for him to get out of the hospital. Still has some leg swelling on the right side and discomfort with shortness of breath and cough. Allergies Allergy/AdvReac Type Severity Reaction Status Date / Time No Known Allergies Allergy Unverified 10/05/21 11:44 Home Medications Medication Instructions Recorded Confirmed Type amitriptyline 50 mg tablet 25 mg PO HS 10/03/21 10/05/21 History glucosamine sulfate 1,000 mg tablet 500 mg PO QAM 10/03/21 10/05/21 History multivitamin 1 tab PO DAILY 10/03/21 10/05/21 History pravastatin 10 mg tablet 5 mg PO HS 10/03/21 10/05/21 History zinc 50 mg tablet 50 mg PO DAILY 10/03/21 10/05/21 History apixaban 5 mg tablet (Eliquis) See Rx Instructions .ROUTE 10/05/21 10/05/21 Rx .COMPLEX #74 tab Past Med/Surg History Medical History (Updated 10/05/21 @ 11:14 by SUNIL Pope) Diverticulitis History of GI diverticular bleed HLD (hyperlipidemia) Surgical History H/O colonoscopy H/O hernia repair Family History Father Diabetes Hypertension Social History Smoking Status: Former smoker Hx Alcohol Use: No Hx Substance Use: No Preferred Language: Setswana Communication Ability: Effective Journalism Professor Required: No Beliefs That Will Affect Care: None Current Living Situation: Spouse Feels Safe at Home: Yes Assistive Devices: Denture - Upper and Denture - Lower Review of Systems Review of Systems: All systems reviewed and are unremarkable except as noted below Respiratory: Minimal shortness of breath with cough Musculoskeletal: Right lower extremity swelling with discomfort Physical Exam Physical Exam: Sitting on a chair without any apparent distress Constitutional: well developed, well nourished, + ill appearing and + obese Eyes: PERRL, conjunctivae normal, anicteric sclerae ENMT: external ear and nose normal, oropharynx normal Neck: trachea midline, no thyromegaly Respiratory: + cough; no respiratory distress Auscultation: + diminished lung sounds; no crackles Cardiovascular: Rate/Rhythm: regular rate and regular rhythm; not tachycardic Heart Sounds: normal S1 and normal S2; no murmur Extremities: + edema (Right lower extremity swelling) Neurologic: patellar DTR's 2+ bilat, sensation intact Results & Data Results & Data ([facility]) Vital Signs (Past 12 Hours) Vital Signs Temp Pulse Pulse Resp BP BP Pulse Ox 10/05/21 12:29 68 19 148/99 H 98 10/05/21 11:08 67 18 142/74 H 98 10/05/21 09:12 36.7 C 91 H 20 176/102 H 95 Medications Administered Current Inpatient Medications Amlodipine Besylate (Amlodipine Besylate 5 Mg Tab) 5 mg PO QAM CLAUDIA Stop: 11/04/21 12:29 Code Status & VTE Plan VTE Prophylaxis Plan VTE Prophylaxis will be ordered: Yes (1) Right leg DVT Chronicity: acute
[2021-10-05] MEDS: amLODIPine BESYLATE 5 MG TAB PO SCH (15:30)
[2021-10-05] MEDS: ENOXAPARIN 80 MG/0.8 ML SYR SQ SCH (21:59)
[2021-10-05] MEDS: AMITRIPTYLINE HCL 25 MG TAB PO SCH (22:00)
[2021-10-05] MEDS: PRAVASTATIN SOD 10 MG TAB PO SCH (22:00)
[2021-10-05] MEDS: dexAMETHasone 6 MG in SYRINGE 0 ML IV SCH (22:00)
[2021-10-06] MEDS: amLODIPine BESYLATE 5 MG TAB PO SCH (08:20)
[2021-10-06] MEDS: ZINC SULFATE 220 MG CAPSULE PO SCH (08:20)
[2021-10-06] MEDS: ENOXAPARIN 80 MG/0.8 ML SYR SQ SCH ×2 (08:21→20:24)
[2021-10-06] MEDS: MULTIVITAMIN TAB PO SCH (08:21)
[2021-10-06] MEDS ORDERED: GLUCOSAMINE SULFATE 1000 MG PO SCH (09:00)
[2021-10-06 09:56] LABS: BUN Creatinine Ratio 17.9 (10-20); Calcium 9.1 mg/dl (8.5-10.1); Est GFR (African American) 79.3 ml/min; Est GFR (Non-African American) 68.4 ml/min; Magnesium 2.2 mg/dl (1.8-2.4); Potassium 3.9 mmol/L (3.5-5.1)
[2021-10-06 10:30] LABS: Basophils # (auto) 0.01 K/uL (0-0.2); Basophils % (auto) 0.1 %; Hematocrit (blood only) 45.8 % (42-52); Hemoglobin 15.3 g/dL (14.0-18.0); Immature Granulocytes # (auto) 0.02 K/uL (0.00-0.02); Immature Granulocytes % (auto) 0.3 %; Lymphocytes # (auto) 0.88 K/uL (1.2-3.4); Lymphocytes % (auto) 11.5 %; Mean Corpuscular Hemoglobin 31.3 pg (25-34); Mean Corpuscular Hgb Conc 33.4 g/dL (32-36); Mean Corpuscular Volume 93.7 fL (80-100); Mean Platelet Volume 10.1 fL (7.4-10.4); Monocytes % (auto) 1.3 %; Neutrophils # (auto) 6.63 K/uL (1.4-6.5); Neutrophils % (auto) 86.8 %; Platelet Count 339 K/uL (130-400); RDW Coefficient of Variation 12.8 % (11.5-14.5); RDW Standard Deviation 43.8 fL (36.4-46.3); Red Blood Count 4.89 M/uL (4.7-6.1); White Blood Count 7.64 K/uL (4.8-10.8)
--- NOTE | 2021-10-06 15:40 | Hospitalist Progress Note ---
Date of Service October 06, 2021 Assessment & Plan (1) Pneumonia due to COVID-19 virus: Plan: Vaccinated with maternal vaccine in Shortness of breath for last 3 or 4 days 1 episode of desaturation at home but has been reasonably well in the emergency room Has been getting dexamethasone and remdesivir Cough suppressant, oxygen as needed and use of spirometry Signed out AMA and came back early this morning Will not give any more remdesivir but will continue dexamethasone Saturating normally on room air No respiratory symptoms (2) Right leg DVT: Plan: Noted to have extensive DVT involving the right leg Started on Lovenox Plan to discharge on DOAC Lovenox restarted and will put him on DOAC on discharge tomorrow His right leg swelling has gone down and there is no calf tenderness and no swelling Will start Eliquis from tomorrow morning and he will be discharged in the afternoon He will need to continue anticoagulation for at least 3 months (3) HLD (hyperlipidemia): Plan: Continue statin Plan: DVT prophylaxis Lovenox CODE STATUS Full Admission and Anticipated Discharge Date Admission Date: October 05, 2021 Subjective 10/06/2021 The patient was seen and examined in medical telemetry unit and in the Covid room His right leg swelling has gone down and there is no tenderness and/or pain He does not have any respiratory symptoms Review of Systems Review of Systems: All systems reviewed and are unremarkable except as noted below Respiratory: Minimal shortness of breath with cough Musculoskeletal: Right lower extremity swelling with discomfort Physical Exam Physical Exam: Sitting on a chair without any apparent distress Constitutional: well developed, well nourished, + ill appearing and + obese Eyes: PERRL, conjunctivae normal, anicteric sclerae ENMT: external ear and nose normal, oropharynx normal Neck: trachea midline, no thyromegaly Respiratory: + cough; no respiratory distress Auscultation: + diminished lung sounds; no crackles Cardiovascular: Rate/Rhythm: regular rate and regular rhythm; not tachycardic Heart Sounds: normal S1 and normal S2; no murmur Extremities: + edema (Right lower extremity swelling) Musculoskeletal: Right leg is minimally swollen without any calf tenderness Neurologic: patellar DTR's 2+ bilat, sensation intact Results & Data Results & Data ([facility]) Vital Signs (Past 12 Hours) Vital Signs Temp Pulse Pulse Resp BP Pulse Ox 10/06/21 15:28 78 10/06/21 12:32 37.1 C 82 18 127/98 95 10/06/21 08:58 36.3 C L 84 16 146/86 H 94 10/06/21 07:17 71 10/06/21 04:00 36.5 C 68 20 119/85 93 Laboratory Results Short CBC 10/06/21 Range/Units 08:55 WBC 7.64 (4.8-10.8) K/uL Hgb 15.3 (14.0-18.0) g/dL Hct 45.8 (42-52) % Plt Count 339 (130-400) K/uL BMP 10/06/21 08:55 Sodium 138 Potassium 3.9 Chloride 104 Carbon Dioxide 27 BUN 20 H Creatinine 1.09 Glucose 176 H Calcium 9.1 Medications Administered Current Inpatient Medications Amitriptyline HCl (Amitriptyline Hcl 25 Mg Tab) 25 mg PO HS CLAUDIA Stop: 11/04/21 20:59 Last Admin: 10/05/21 22:00 Dose: 25 mg Documented by: Amlodipine Besylate (Amlodipine Besylate 5 Mg Tab) 5 mg PO QA CLAUDIA Stop: 11/04/21 12:59 Last Admin: 10/06/21 08:20 Dose: 5 mg Documented by: Enoxaparin Sodium (Enoxaparin 80 Mg/0.8 Ml Syr) 80 mg SQ Q12H CLAUDIA Stop: 11/04/21 20:59 Last Admin: 10/06/21 08:21 Dose: 80 mg Documented by: Dexamethasone 6 mg/ Syringe 1.5 mls @ 1 mls/min IV Q24H CLAUDIA Stop: 11/04/21 21:59 Last Admin: 10/05/21 22:00 Dose: 1 mls/min Documented by: Multivitamins (Multivitamin Tab) 1 tab PO DAILY CLAUDIA Stop: 11/05/21 08:59 Last Admin: 10/06/21 08:21 Dose: 1 tab Documented by: Pravastatin Sodium (Pravastatin Sod 10 Mg Tab) 5 mg PO HS CLAUDIA Stop: 11/04/21 20:59 Last Admin: 10/05/21 22:00 Dose: 5 mg Documented by: Zinc Sulfate (Zinc Sulfate 220 Mg Capsule) 220 mg PO DAILY CLAUDIA Stop: 11/05/21 08:59 Last Admin: 10/06/21 08:20 Dose: 220 mg Documented by: (1) Right leg DVT Chronicity: acute
[2021-10-06] MEDS: AMITRIPTYLINE HCL 25 MG TAB PO SCH (20:24)
[2021-10-06] MEDS: PRAVASTATIN SOD 10 MG TAB PO SCH (20:24)
[2021-10-06] MEDS: dexAMETHasone 6 MG in SYRINGE 0 ML IV SCH (20:32)
[2021-10-07] MEDS: ENOXAPARIN 80 MG/0.8 ML SYR SQ SCH (07:52)
[2021-10-07] MEDS: ZINC SULFATE 220 MG CAPSULE PO SCH (08:32)
[2021-10-07] MEDS: MULTIVITAMIN TAB PO SCH (08:32)
[2021-10-07] MEDS: amLODIPine BESYLATE 5 MG TAB PO SCH (08:32)
--- NOTE | 2021-10-07 10:08 | Discharge Summary ---
Date of Service October 07, 2021 Admission HPI Per Admitting Provider This is the admission note from yesterday; He is a 71 y/o male with a PMH of dyslipidemia and elevated PSA who presents to the ED today with progressive shortness of breath for the past 3-4 days. Pt notes that he developed cough, progressive VINSON, fatigue and mild COHN about 4 days ago. Symptoms have been getting worse so he came in for evaluation today. He was noted to be hypoxic in the ED at 88% on RA but improved with 2 L of oxygen to the 90s so he was referred for admission. Pt was vaccinated for COVID with Moderna in January, February, and was scheduled for a booster next week. Pt denies chest pain, palpitations, dizziness, N/V/D. He has been using cough medicine, decongestant and Tylenol for his symptoms at home. He denies prior hx of underlying lung disease or HTN. He has also noted progressive swelling of the RLE over the past few days. He signed out AMA early this morning and came back thereafter as because he thought it was long for him to get out of the hospital. Still has some leg swelling on the right side and discomfort with shortness of breath and cough. Admission Exam Per Admitting Provider Physical Exam: Sitting on a chair without any apparent distress Constitutional: well developed, well nourished, + ill appearing and + obese Eyes: PERRL, conjunctivae normal, anicteric sclerae ENMT: external ear and nose normal, oropharynx normal Neck: trachea midline, no thyromegaly Respiratory: + cough; no respiratory distress Auscul tation: + diminished lung sounds; no crackles Cardiovascular: Rate/Rhythm: regular rate and regular rhythm; not tachycardic Heart Sounds: normal S1 and normal S2; no murmur Extremities: + edema (Right lower extremity swelling) Neurologic: patellar DTR's 2+ bilat, sensation intact Principal Diagnosis Pneumonia due to COVID-19 virus infection, right leg DVT Discharge Exam Sitting on a chair without any apparent distress Constitutional well developed, well nourished, + ill appearing and + obese Eyes PERRL, conjunctivae normal, anicteric sclerae ENMT external ear and nose normal, oropharynx normal Neck trachea midline, no thyromegaly Respiratory + cough; no respiratory distress Auscultation: + diminished lung sounds; no crackles Cardiovascular Rate/Rhythm: regular rate and regular rhythm; not tachycardic Heart Sounds: normal S1 and normal S2; no murmur Extremities: + edema (Right lower extremity swelling) Musculoskeletal No acute arthritis in any joint Neurologic patellar DTR's 2+ bilat, sensation intact Discharge Data Allergies Allergy/AdvReac Type Severity Reaction Status Date / Time No Known Allergies Allergy Unverified 10/05/21 11:44 Consultations 10/05/21 11:51 ED Decision to Admit Stat Hospital Course (1) Pneumonia due to COVID-19 virus: Vaccinated with maternal vaccine in January/February Shortness of breath for last 3 or 4 days 1 episode of desaturation at home but has been reasonably well in the emergency room Has been getting dexamethasone and remdesivir Cough suppressant, oxygen as needed and use of spirometry Signed out AMA and came back early this morning Will not give any more remdesivir but will continue dexamethasone Saturating normally on room air No respiratory symptoms and saturating normally on room air Will be discharged home this morning (2) Right leg DVT: Noted to have extensive DVT involving the right leg Started on Lovenox Plan to discharge on DOAC Lovenox restarted and will put him on DOAC on discharge tomorrow His right leg swelling has gone down and there is no calf tenderness and no swelling Will start Eliquis from tomorrow morning and he will be discharged in the aftern oon He will need to continue anticoagulation for at least 3 months (3) HLD (hyperlipidemia): Continue statin DVT prophylaxis Lovenox CODE STATUS Full Total Time Total Time Spent Total Time Spent (In Minutes): 35 minutes Discharge Plan Discharge Items Patient Disposition: Home - Self-Care Reason For Visit: RT LE DCT,COVID 19 VIRUS INFECTION Discharge Diagnosis: Pneumonia due to COVID-19 virus infection, right leg DVT Condition on Discharge: Good Activity: Resume your previous activity Non-emergency contact: Primary Care Provider Call non-emergency contact if: you have any medication questions and your symptoms worsen Follow-up/Referrals: Heidy Rasmussen MD [Primary Care Provider] - 10/09/21 2:40 pm (Your appointment will be with Dr. Salinas. Dr. Rasmussen is not available) Diet: Regular Addtl Attending Provider Instructions: Please take precautions to avoid fall Start taking Eliquis from this afternoon-10 mg orally 2 times daily for 7 days and then 5 mg 2 times daily to continue Finish dexamethasone as advised Please follow the isolation protocol as per CDC until 13 October as recommended below: Home Isolation COVID-19 Instructions The following information about Home Isolation is from the CDC Website: https://www.cdc.gov/coronavirus/2019-ncov/hcp/fzepopcg-hfyrjzg-dczuyz.html Stay home except to get medical care People who are mildly ill with COVID-19 are able to isolate at home during their illness. You should restrict activities outside your home, except for getting medical care. Do not go to work, school, or public areas. Avoid using public transportation, ride-sharing, or taxis. Separate yourself from other people and animals in your home People: As much as possible, you should stay in a specific room and away from other people in your home. Also, you should use a separate bathroom, if available. Animals: You should restrict contact with pets and other animals while you are sick with COVID-19, just like you would around other people. Although there have not been reports of pets or other animals becoming sick with COVID-19, it is still recommended that people sick with COVID-19 limit contact with animals until more information is known about the virus. When possible, have another member of your household care for your animals while you are sick. If you are sick with COVID-19, avoid contact with your pet, including petting, snuggling, being kissed or licked, and sharing food. If you must care for your pet or be around animals while you are sick, wash your hands before and after you interact with pets and wear a face mask. Call ahead before visiting your doctor If you have a medical appointment, call the healthcare provider and tell them that you have or may have COVID-19. This will help the healthcare providers office take steps to keep other people from getting infected or exposed. Wear a face mask You should wear a face mask when you are around other people (e.g., sharing a room or vehicle) or pets and before you enter a healthcare providers office. If you are not able to wear a face mask (for example, because it causes trouble breathing), then people who live with you should not stay in the same room with you, or they should wear a face mask if they enter your room. Cover your coughs and sneezes Cover your mouth and nose with a tissue when you cough or sneeze. Throw used tissues in a lined trash can. Immediately wash your hands with soap and water f or at least 20 seconds or, if soap and water are not available, clean your hands with an alcohol-based hand food sampler that contains at least 60% alcohol. Clean your hands often Wash your hands often with soap and water for at least 20 seconds, especially after blowing your nose, coughing, or sneezing; going to the bathroom; and before eating or preparing food. If soap and water are not readily available, use an alcohol-based hand food sampler with at least 60% alcohol, covering all surfaces of your hands and rubbing them together until they feel dry. Soap and water are the best option if hands are visibly dirty. Avoid touching your eyes, nose, and mouth with unwashed hands. Avoid sharing personal household items You should not share dishes, drinking glasses, cups, eating utensils, towels, or bedding with other people or pets in your home. After using these items, they should be washed thoroughly with soap and water. Clean all high-touch surfaces everyday High touch surfaces include counters, tabletops, doorknobs, bathroom fixtures, toilets, phones, keyboards, tablets, and bedside tables. Also, clean any andres rfaces that may have blood, stool, or body fluids on them. Use a household cleaning spray or wipe, according to the label instructions. Labels contain instructions for safe and effective use of the cleaning product including precautions you should take when applying the product, such as wearing gloves and making sure you have good ventilation during use of the product. Monitor your symptoms Seek prompt medical attention if your illness is worsening (e.g., difficulty breathing).Beforeseeking care, call your healthcare provider and tell them t hat you have, or are being evaluated for, COVID-19. Put on a face mask before you enter the facility. These steps will help the healthcare providers office to keep other people in the office or waiting room from getting infected or exposed. Ask your healthcare provider to call the local or [facility] health department. Persons who are placed under active monitoring or facilitated self- monitoring should follow instructions provided by their local health department or occupational health professionals, as appropriate. When working with your local health department check their available hours. If you have a medical emergency and need to call 911, notify the dispatch personnel that you have, or are being evaluated for COVID-19. If possible, put on a face mask before emergency medical services arrive. Discontinuing home isolation Patients with confirmed COVID-19 should remain under home isolation precautions until the risk of secondary transmission to others is thought to be low. The decision to discontinue home isolation precautions should be made on a [id number] basis, in consultation with healthcare providers and [facility] and local health departments. Pending Studies at Discharge: No Stand-Alone Forms: My [facility], Smoking Cessation Medications and DC Order Prescriptions: New Eliquis 5 mg tablet See Rx Instructions .ROUTE .COMPLEX Qty: 74 RF: 0 dexamethasone 6 mg tablet 6 mg PO DAILY Qty: 6 RF: 0 Continued pravastatin 10 mg tablet 5 mg PO HS RF: 0 multivitamin Tablet 1 tab PO DAILY RF: 0 amitriptyline 50 mg Tablet 25 mg PO HS RF: 0 zinc 50 mg Tablet 50 mg PO DAILY RF: 0 glucosamine sulfate 1,000 mg Tablet 500 mg PO QAM RF: 0 Discharge Orders: Discharge Order (Routine); Ordered 10/07/21 Ordered By: Marisa Eid Admission Data Admit Date/Time: 10/05/21 12:30 Attending Provider: Marisa Eid Admit Provider: Marisa Eid Primary Care Provider: Heidy Rasmussen Other Providers: Marisa Eid
--- NOTE | 2021-10-08 10:48 | Electrocardiogram Report ---
Test Reason : Blood Pressure : / mmHG Vent. Rate : 075 BPM Atrial Rate : 075 BPM P-R Int : 160 ms QRS Dur : 100 ms QT Int : 386 ms P-R-T Axes : 017 -57 042 degrees QTc Int : 431 ms Normal sinus rhythm Incomplete right bundle branch block Left anterior fascicular block Abnormal ECG When compared with ECG of 03-OCT-2021 09:11, No significant change was found Confirmed by Keenan Villavicencio ([id number]) on 10/08/2021 10:48:09 AM Referred By: REFERRED SELF Confirmed By:Evangelista Villavicencio
== END 2021-10-07 10:58 | disposition home or self-care (01) | DRG 177 ==
LOC: ED 09:06 → EDINP 12:30 → 2N 20:27

== ENCOUNTER 2025-06-28 13:02 | Observation (INO) ==
--- NOTE | 2025-06-28 13:17 | Emergency Department Note ---
Impression & Plan Ambulatory dysfunction Admission ED Provider Note HPI: History obtained from patient. The patient is a 75-year-old gentleman who presents the emergency department with confusion and altered mental status. Patient arrives as a trauma alert, apparently yesterday he had a fall and hit the back of his head. Today the patient was taking a nap and his was having a difficult time waking him up and that she therefore contacted EMS. On arrival here to the ED the patient is alert, he is oriented to place but not time. He is able to follow instructions appropriately, patient denies any focal complaint of pain aside from "on my backside" where he is noted to have some superficial skin irritation. *Cervical spine was cleared clinically shortly after patient arrival at 1325, patient has full range of motion of the cervical spine without any limitation or pain ROS: - Per HPI Differential Diagnosis: Intracranial injury to include subdural hematoma, epidural hematoma, skull fracture, cervical spine fracture, rib injury, pneumothorax, hemothorax, infection/sepsis, amongst other potential pathologies. *Outpatient medications and allergy history reviewed. PRIMARY SURVEY: Airway-intact, patient speaks in full sentences Respiratory-clear bilateral breath sounds Circulation-2+ DP pulses bilaterally, 2+ radial pulses bilaterally Neurologic-patient is alert Exposure-no evidence of any open wounds or lacerations, there is some excoriation of skin in the superior aspect of the gluteal folds without any open wounds or purulent drainage Secondary survey: General: Alert, frail-appearing HEENT: Normocephalic, trachea midline Eyes: Extraocular eye movement is intact, no scleral erythema Pulmonary: Clear to auscultation bilaterally, no wheezing Cardio: Regular rate and rhythm GI: Abdomen is soft to palpation : No suprapubic tenderness MSK: No evidence of trauma or malformation of the extremities, no midline tenderness of the thoracic or lumbar spine with palpation, 2+ edema of the bilateral lower extremities Skin: Excoriated appearing skin in the superior aspect of the gluteal fold without any purulent drainage or open ulceration, otherwise no evidence of rash Neuro: Alert, no focal deficits Psychiatric: Cooperative INDEPENDENT INTERPRETATIONS: monitoring tech: (As interpreted by myself): - An order was placed for continuous cardiac monitoring - Patient was noted to be in sinus rhythm with a rate of 65 Chest x-ray: (As interpreted by myself): No acute disease Interventions provided in ED: - IV fluid bolus Medical Decision Making: IV was established and lab work obtained, patient was placed on cardiac catheterization technologist. Lab work shows no leukocytosis, hemoglobin is stable, platelet count is normal, CMP does not show any evidence of any critical findings. Urinalysis does not show any evidence of infection. CT imaging of the head as well as CT imaging of the cervical spine were obtained and there is no evidence of any intracranial injury, no evidence of any cervical spine fracture. Chest x-ray does not show any evidence of any acute disease. On my reassessment the patient has a friend at the bedside, he states that the patient has not been getting up and moving around at home much at all over the past several months. Patient is very frail appearing and somewhat cachectic. He does have some edema in the bilateral lower extremities. I was able to contact the patient's son, Rafiq, over the phone. He states that they have been attempting to get both the patient and his into a nursing facility over the past several months without success thus far. He is requesting admission for PT/OT and placement into a nursing facility. I discussed this with the patient, he was in agreement for admission to the hospital for placement. He states he does have extreme difficulty getting up and moving throughout the house to accomplish his activities of daily living. The patient's presentation was discussed with the on-call hospitalist, Dr. Ferrera, the patient was placed for admission in stable condition. Consultants/Discussions held with other healthcare providers: - HospitalistDr. Ferrera Disposition discussion held by myself with: - Patient and friend at bedside as well as the patient's son over the phone Diagnosis: 1. Closed head injury, acute 2. Ambulatory dysfunction, acute 3. Physical deconditioning with inability to accomplish activities of daily living Disposition: Admission Duncan Chandler DO Emergency Medicine Past Med/Surg History Problem List (Updated 06/28/25 @ 15:29 by Duncan Chandler DO) Ambulatory dysfunction (Acute) Urinary urgency Elevated PSA HLD (hyperlipidemia) Right leg DVT (Acute) Hypoxia (Acute) Pneumonia due to COVID-19 virus (Acute) Medical History Diverticulitis History of GI diverticular bleed Surgical History H/O colonoscopy H/O hernia repair Family History Father Diabetes Hypertension Social History Smoking Status: Former smoker Hx Alcohol Use: No Hx Substance Use: No Preferred Language: Macanese Communication Ability: Effective 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 Beliefs That Will Affect Care: None Current Living Situation: Spouse Current Living Situation Comment: at home with Feels Safe at Home: Yes Assistive Devices: None Allergies Allergies Allergy/AdvReac Type Severity Reaction Status Date / Time No Known Allergies Allergy Unverified 10/05/21 11:44 Home Meds Home Medications Medication Instructions Recorded Confirmed multivitamin 1 tab PO DAILY 10/03/21 06/28/25 pravastatin 10 mg tablet 5 mg PO HS 10/03/21 06/28/25 zinc 50 mg tablet 50 mg PO .Q OTHER DAY 10/03/21 06/28/25 Results & Data (ED) Vital Signs Vital Signs - 24 hr 06/28/25 13:09 06/28/25 13:15 06/28/25 13:16 Temperature 36.9 C Temperature Source Oral Pulse Rate 65 76 Pulse Rate from SpO2 Sensor 65 Respiratory Rate 15 20 Respiratory Effort / Characteristics Non-Labored Spontaneous Respiratory Depth Normal Respiratory Pattern Regular Blood Pressure 156/93 H 156/93 H Blood Pressure Mean 108 114 Blood Pressure Position Lying Pulse Oximetry 92 94 Oxygen Delivery Method Room Air Oxygen Flow Rate Sepsis Recent Fever Within 48 Hours No Sepsis New/Unexplained Change in Mental Status N/A Sepsis Action Taken by Nursing No Action Required 06/28/25 13:16 06/28/25 13:16 06/28/25 13:34 Temperature 36.9 C Temperature Source Pulse Rate 76 Pulse Rate from SpO2 Sensor Respiratory Rate 22 Respiratory Effort / Characteristics Non-Labored Spontaneous Respiratory Depth Normal Respiratory Pattern Regular Blood Pressure 156/93 H 146/86 H Blood Pressure Mean 118 Blood Pressure Position Pulse Oximetry 94 95 Oxygen Delivery Method Room Air Room Air Oxygen Flow Rate 0 Sepsis Recent Fever Within 48 Hours Sepsis New/Unexplained Change in Mental Status Sepsis Action Taken by Nursing 06/28/25 13:39 06/28/25 13:42 06/28/25 13:46 Temperature Temperature Source Pulse Rate 61 64 Pulse Rate from SpO2 Sensor 62 64 Respiratory Rate 16 15 Respiratory Effort / Characteristics Respiratory Depth Respiratory Pattern Blood Pressure Blood Pressure Mean Blood Pressure Position Pulse Oximetry 95 95 95 Oxygen Delivery Method Room Air Oxygen Flow Rate Sepsis Recent Fever Within 48 Hours Sepsis New/Unexplained Change in Mental Status Sepsis Action Taken by Nursing 06/28/25 13:46 06/28/25 14:00 Temperature Temperature Source Pulse Rate Pulse Rate from SpO2 Sensor Respiratory Rate Respiratory Effort / Characteristics Respiratory Depth Respiratory Pattern Blood Pressure 144/96 H Blood Pressure Mean 107 Blood Pressure Position Pulse Oximetry 95 Oxygen Delivery Method Room Air Oxygen Flow Rate Sepsis Recent Fever Within 48 Hours Sepsis New/Unexplained Change in Mental Status Sepsis Action Taken by Nursing Laboratory Data 06/28/25 13:19 06/28/25 13:19 Lab Results 06/28/25 06/28/25 06/28/25 Range/Units 13:19 13:23 13:50 WBC 7.04 (4.8-10.8) K/ul RBC 4.18 L (4.70-6.10) M/uL Hgb 13.4 L (14.0-18.0) g/dl POC Hgb 13.6 L (14.0-18.0) g/dl Hct 40.4 L (42.0-52.0) % POC Hct 40 L (42-52) % MCV 96.7 (80.0-100.0) fL MCH 32.1 (25.0-34.0) pg MCHC 33.2 (32.0-36.0) g/dL RDW Std Deviation 45.0 (36.4-46.3) fL RDW Coeff of Latrice 12.7 (11.5-14.5) % Plt Count 216 (130-400) K/uL MPV 9.0 L (9.4-12.4) fL Immature Gran % (Auto) 0.3 % Neut % (Auto) 70.8 % Lymph % (Auto) 18.8 % [place] % (Auto) 7.0 % Eos % (Auto) 1.8 % Baso % (Auto) 1.3 % Neut # (Auto) 4.99 (1.40-6.50) K/uL Lymph # (Auto) 1.32 (1.20-3.40) K/uL [place] # (Auto) 0.49 (0.11-0.59) K/uL Eos # (Auto) 0.13 (0.00-0.50) K/uL Baso # (Auto) 0.09 (0.00-0.20) K/uL Immature Gran # (Auto) 0.02 (0.01-0.20) K/uL PT 11.2 (9.0-12.0) Seconds INR 1.0 (0.9-1.1) APTT 26 (21-31) Seconds PTT Ratio 1.0 POC Sodium 141 (135-144) mmol/L Sodium 141 (136-145) mmol/L POC Potassium 4.2 (3.3-5.0) mmol/L Potassium 4.2 (3.5-5.1) mmol/L POC Chloride 103 (101-112) mmol/L Chloride 104 (98-107) mmol/L Carbon Dioxide 33 H (21-32) mmol/L POC Total CO2 27 (24-31) mmol/L Anion Gap 4 (3-11) POC Anion Gap 16.0 (16-25) mmol/L POC BUN 19 H (7-18) mg/dl BUN 21 (6-23) mg/dl Creatinine 1.07 (0.6-1.4) mg/dl POC Creatinine 1.1 (0.6-1.3) mg/dl Est Cr Clr Drug Dosing 45.7 ml/min eGFR 72.82 BUN/Creatinine Ratio 19.6 (10-20) Glucose 107 H (70-99(Fasting)) mg/dl POC Glucose (other) 107 H (70-99) mg/dl Calcium 9.3 (8.6-10.3) mg/dl POC Ioniz Calcium Case 1.22 (1.12-1.32) mmol/l Total Bilirubin 0.5 (0.2-1.0) mg/dl AST 18 (13-39) U/L ALT 11 (7-52) U/L Alkaline Phosphatase 60 (34-104) U/L Total Protein 7.2 (6.0-8.3) gm/dl Albumin 3.7 (3.4-5.0) gm/dl Globulin 3.5 (2.5-4.0) gm/dl Albumin/Globulin Ratio 1.1 (0.9-2) Lipase 25 (11-82) U/L Urine Color Yellow Urine Appearance Clear (Clear) Urine pH 6.0 (4.5-7.5) Ur Specific [place] 1.025 (1.000-1.030) Urine Protein Negative (Negative) Urine Glucose (UA) Negative (Negative) Urine Ketones Negative (Negative) Urine Blood Negative (Negative) Urine Nitrite Negative (Negative) Urine Bilirubin Negative (Negative) Urine Urobilinogen Negative (Negative) Ur Leukocyte Esterase Negative (Negative) Urine Comment Administered Medications Discontinued Medications Sodium Chloride (Nss) 500 mls @ 999 mls/hr IV .Q31M ONE Stop: 06/28/25 13:46 Last Infusion: 06/28/25 14:27 Dose: Infused Documented By: Admin: 06/28/25 13:49 Dose: 999 mls/hr Documented By: TNK Imaging Data Radiologist's Impression: Chest X-Ray 06/28/25 13:15 XR chest 1V portable CLINICAL HISTORY: Trauma COMPARISON STUDY: 04/18/2024 FINDINGS: Heart size and pulmonary vasculature are normal. No consolidation or pleural effusion. No pneumothorax. No displaced rib fractures seen. IMPRESSION: No acute findings. ACT 112: Negative or not required by law. Electronically signed by: Iglesia Waddell M.D. 06/28/2025 1:[address] 06/28/25 13:16 CT cervical spine wo con CLINICAL HISTORY: Trauma. COMPARISON: 04/18/2024 TECHNIQUE: Multiple axial CT images of the cervical spine were obtained without contrast. A dose lowering technique was utilized adhering to the principles of ALARA. FINDINGS: There is moderate lower cervical degenerative disc disease. No fracture or subluxation seen. IMPRESSION: No fracture seen of the cervical spine. ACT 112: Negative or not required by law. The above report was generated using voice recognition software. It may contain grammatical, syntax or spelling errors. Electronically signed by: Iglesia Waddell M.D. 06/28/2025 1:[address] 06/28/25 13:16 CT SCAN OF THE BRAIN WITHOUT IV CONTRAST CLINICAL HISTORY: Trauma. COMPARISON STUDY: Head CT April 18, 2024. TECHNIQUE: Unenhanced axial CT scan of the brain was performed from the vertex to the skull base. A dose lowering technique was utilized adhering to the principles of ALARA. CT DOSE: 927.56 mGy.cm FINDINGS: Brain parenchyma: No acute intracranial hemorrhage, midline shift or mass effect is present. Muse-white matter differentiation is preserved. There are no extra- axial fluid collections. There are no findings to suggest acute dural sinus thrombosis or acute territorial infarct. White matter hypodensities are similar to prior study and favor small vessel disease. Ventricles, sulci, cisterns: Ventricular dilatation is unchanged and likely related to central atrophy. The basal cisterns are patent. Calvarium: Unremarkable. Sinuses and mastoids: The visualized paranasal sinuses are clear. The mastoid air cells are well pneumatized. Orbits: The bony orbits are grossly intact. IMPRESSION: 1. No acute intracranial findings. No change in appearance of the brain. 2. No calvarial fractures. ACT 112: Negative or not required by law. Electronically signed by: Edgardo So M.D. 06/28/2025 1:42 PM Discharge Plan Visit Data Chief Complaint: Trauma Stated Complaint: FALL ED Provider: Duncan Chandler Discharge Problem: Ambulatory dysfunction Patient Disposition: Admitted As Inpatient Condition: Fair Forms Stand Alone Forms: My [facility] Prescriptions Prescriptions: No Action pravastatin 10 mg tablet 5 mg PO HS multivitamin Tablet 1 tab PO DAILY zinc 50 mg Tablet 50 mg PO .Q OTHER DAY Referrals Referrals: Oneil Hinojosa MD [Primary Care Provider] -
--- NOTE | 2025-06-28 13:25 | XRay Report ---
XR chest 1V portable CLINICAL HISTORY: Trauma COMPARISON STUDY: 04/18/2024 FINDINGS: Heart size and pulmonary vasculature are normal. No consolidation or pleural effusion. No p neumothorax. No displaced rib fractures seen. IMPRESSION: No acute findings. ACT 112: Negative or not required by law. Electronically signed by: Iglesia Waddell M.D. 06/28/2025 1:23 PM
[2025-06-28 13:38] LABS: Hematocrit (blood only) 40.4 % (42.0-52.0); Hemoglobin 13.4 g/dl (14.0-18.0); Immature Granulocytes # (auto) 0.02 K/uL (0.01-0.20); Immature Granulocytes % (auto) 0.3 %; Mean Corpuscular Hemoglobin 32.1 pg (25.0-34.0); Mean Corpuscular Volume 96.7 fL (80.0-100.0); Platelet Count 216 K/uL (130-400); RDW Standard Deviation 45.0 fL (36.4-46.3); Red Blood Count 4.18 M/uL (4.70-6.10); White Blood Count 7.04 K/ul (4.8-10.8)
--- NOTE | 2025-06-28 13:43 | CT Scan Report ---
CT SCAN OF THE BRAIN WITHOUT IV CONTRAST CLINICAL HISTORY: Trauma. COMPARISON STUDY: Head CT April 18, 2024. TECHNIQUE: Unenhanced axial CT scan of the brain was performed from the vertex to the skull base. A dose lowering technique was utilized adhering to the principles of ALARA. CT DOSE: 927.56 mGy.cm FINDINGS: Brain parenchyma: No acute intracranial hemorrhage, midline shift or mass effect is present. Muse-whi te matter differentiation is preserved. There are no extra-axial fluid collections. There are no find ings to suggest acute dural sinus thrombosis or acute territorial infarct. White matter hypodensities are similar to prior study and favor small vessel disease. Ventricles, sulci, cisterns: Ventricular dilatation is unchanged and likely related to central atroph y. The basal cisterns are patent. Calvarium: Unremarkable. Sinuses and mastoids: The visualized paranasal sinuses are clear. The mastoid air cells are well pneu matized. Orbits: The bony orbits are grossly intact. IMPRESSION: 1. No acute intracranial findings. No change in appearance of the brain. 2. No calvarial fractures. ACT 112: Negative or not required by law. Electronically signed by: Edgardo So M.D. 06/28/2025 1:42 PM
--- NOTE | 2025-06-28 13:48 | CT Scan Report ---
CT cervical spine wo con CLINICAL HISTORY: Trauma. COMPARISON: 04/18/2024 TECHNIQUE: Multiple axial CT images of the cervical spine were obtained without contrast. A dose low ering technique was utilized adhering to the principles of ALARA. FINDINGS: There is moderate lower cervical degenerative disc disease. No fracture or subluxation seen . IMPRESSION: No fracture seen of the cervical spine. ACT 112: Negative or not required by law. The above report was generated using voice recognition software. It may contain grammatical, syntax o r spelling errors. Electronically signed by: Iglesia Waddell M.D. 06/28/2025 1:47 PM
[2025-06-28] MEDS: SODIUM CHLORIDE 0.9% 500 ML IV ONE (13:49)
[2025-06-28 14:00] LABS: Alanine Aminotransferase 11.0 U/L (7-52); Albumin Globulin Ratio 1.1 (0.9-2); Alkaline Phosphatase 60.0 U/L (34-104); Anion Gap 4.0 (3-11); Bilirubin,Total 0.5 mg/dl (0.2-1.0); Blood Urea Nitrogen 21.0 mg/dl (6-23); Calcium 9.3 mg/dl (8.6-10.3); Carbon Dioxide 33.0 mmol/L (21-32); Chloride 104.0 mmol/L (98-107); Creatinine Clr Calc Pharmacy 45.7 ml/min; Globulin 3.5 gm/dl (2.5-4.0); Glucose 107.0 mg/dl (70-99(Fasting)); Lipase 25.0 U/L (11-82); Potassium 4.2 mmol/L (3.5-5.1); Sodium 141.0 mmol/L (136-145); Total Protein 7.2 gm/dl (6.0-8.3)
[2025-06-28 14:08] LABS: Appearance Urine Clear (Clear); Glucose Urine UA Negative (Negative)
[2025-06-28 14:09] LABS: INR 1.0 (0.9-1.1); Partial Thromboplastin Time 26 Seconds (21-31); Prothrombin Time 11.2 Seconds (9.0-12.0)
--- NOTE | 2025-06-28 16:16 | History & Physical Report ---
Date of Service June 28, 2025 Assessment & Plan (1) Closed head injury: Plan: Fortunately, current head CT scan is unremarkable except for age-related changes. Supportive care. (2) Ambulatory dysfunction: Plan: Appears to be due to underlying Parkinson's disease. Sinemet has been started. OT and PT assessments requested (3) Senile dementia: Plan: Supportive care (4) Leg edema: Plan: No overt CHF. Edema is worse on the right lower extremity than the left. Suspect underlying chronic venous insufficiency. He does have a history of previous DVT involving the right leg but I do not think systemic anticoagulation is an option in this particular patient with frequent falls where the risks definitely outweigh the potential benefits (5) Hyperlipidemia: Plan: Continue statin therapy Plan OT and PT assessments have been requested. Probable SNF placement at discharge History of Present Illness Chief Complaint: Difficult to arouse, frequent falls Primary Care Provider: Oneil Hinojosa MD 75-year-old white male with dementia who has ambulatory dysfunction and appears to also have Parkinson's disease. He recently fell suffering a closed head injury without overt evidence of head trauma and no apparent loss of consciousness. He was difficult to arouse, however, according to his today and was brought to the ER by family members. Head CT scan today is unremarkable except for chronic findings including cerebral atrophy and small vessel disease. He is admitted for further evaluation and initiation of Sinemet therapy along with OT and PT evaluations. He probably will need SNF placement at discharge. Allergies Allergy/AdvReac Type Severity Reaction Status Date / Time No Known Allergies Allergy Unverified 10/05/21 11:44 Home Medications Medication Instructions Recorded Confirmed Type multivitamin 1 tab PO DAILY 10/03/21 06/28/25 History pravastatin 10 mg tablet 5 mg PO HS 10/03/21 06/28/25 History zinc 50 mg tablet 50 mg PO .Q OTHER DAY 10/03/21 06/28/25 History Past Med/Surg History Problem List (Updated 06/28/25 @ 16:14 by Barry Ferrera MD) Hyperlipidemia Leg edema Senile dementia Closed head injury Ambulatory dysfunction (Acute) Urinary urgency Elevated PSA HLD (hyperlipidemia) Right leg DVT (Acute) Hypoxia (Acute) Pneumonia due to COVID-19 virus (Acute) Medical History Diverticulitis History of GI diverticular bleed Surgical History H/O colonoscopy H/O hernia repair Family History Father Diabetes Hypertension Social History Smoking Status: Former smoker Hx Alcohol Use: No Hx Substance Use: No Preferred Language: Occitan Communication Ability: Effective Manager Printing Required: No Beliefs That Will Affect Care: None Current Living Situation: Spouse Current Living Situation Comment: at home with Feels Safe at Home: Yes Assistive Devices: None Review of Systems 2 Review of Systems: The patient has been severe baseline dementia and is unable to reliably answer any questions regarding review of systems at this time Physical Exam 2 Physical Exam: General-awake. Demented. Disoriented. Flat affect HEENT - head atraumatic and normocephalic, pupils equal and reactive to light, extraocular muscles intact Neck-no lymphadenopathy or thyromegaly, trachea midline Chest-clear to auscultation. No rales, wheezing or rhonchi Cardiac-regular rate and rhythm, normal S1 and S2 Abdomen-normal bowel sounds, no hepatosplenomegaly Extremities-no cyanosis, clubbing, or edema Neuro-cranial nerves II through XII intact, features consistent with Parkinson's disease. strength symmetrical but generalized weakness, no focal deficits Psych-baseline dementia. Flat affect Results & Data Results & Data Vital Signs (Past 12 Hours) Vital Signs Temp Pulse Resp BP Pulse Ox O2 Del Method O2 Flow Rate 06/28/25 14:00 144/96 H 06/28/25 13:46 95 Room Air 06/28/25 13:46 95 Room Air 06/28/25 13:42 64 15 95 06/28/25 13:39 61 16 95 06/28/25 13:34 146/86 H 06/28/25 13:16 95 Room Air 06/28/25 13:16 36.9 C 76 22 156/93 H 94 Room Air 0 06/28/25 13:16 36.9 C 76 20 156/93 H 94 Room Air 06/28/25 13:15 65 15 92 06/28/25 13:09 156/93 H Laboratory Results 06/28/25 13:19 08/18/25 13:19 Code Status & VTE Plan Code Status DNR/DNI VTE Prophylaxis Plan VTE Prophylaxis will be ordered: Yes PG Care Time/CCT Total # of Minutes Spent Total Time Spent with Patient: Total time spent is greater than 50% in coordination of care (as documented) at patient's floor/unit and/or counseling patient: Coding Level of Care Code 02051 INT INP/OBS CARE 3/75MIN Diagnoses Closed head injury S09.90XA Ambulatory dysfunction R26.2 Senile dementia F03.90 Leg edema R60.0 Hyperlipidemia E78.5
[2025-06-28] MEDS: ZINC SULFATE 220 MG CAPSULE PO SCH (20:38)
[2025-06-28] MEDS: PRAVASTATIN SOD 10 MG TAB PO SCH (20:38)
[2025-06-28] MEDS: HEPARIN SOD 5,000 UNIT/0.5 ML VIAL SQ SCH (20:40)
[2025-06-28] MEDS: CARBIDOPA/LEVODOPA 25-250 1 EA TAB PO SCH (21:25)
[2025-06-28] MEDS: ACETAMINOPHEN 325 MG TAB PO PRN (21:42)
[2025-06-29] MEDS: MULTIVITAMIN TAB PO SCH (07:21)
[2025-06-29 07:54] LABS: Hematocrit (blood only) 38.6 % (42.0-52.0); Hemoglobin 12.8 g/dl (14.0-18.0); Immature Granulocytes # (auto) 0.01 K/uL (0.01-0.20); Immature Granulocytes % (auto) 0.1 %; Mean Corpuscular Hemoglobin 31.3 pg (25.0-34.0); Mean Corpuscular Volume 94.4 fL (80.0-100.0); Platelet Count 200 K/uL (130-400); RDW Standard Deviation 43.0 fL (36.4-46.3); Red Blood Count 4.09 M/uL (4.70-6.10); White Blood Count 7.66 K/ul (4.8-10.8)
[2025-06-29 08:14] LABS: Anion Gap 7.0 (3-11); Blood Urea Nitrogen 16.0 mg/dl (6-23); Calcium 8.7 mg/dl (8.6-10.3); Carbon Dioxide 27.0 mmol/L (21-32); Chloride 106.0 mmol/L (98-107); Creatinine Clr Calc Pharmacy 61.4 ml/min; Glucose 91.0 mg/dl (70-99(Fasting)); Potassium 3.9 mmol/L (3.5-5.1); Sodium 140.0 mmol/L (136-145)
[2025-06-29] MEDS: ONDANSETRON INJ 2 MG/ML 2 ML VIAL IV PRN (10:43)
--- NOTE | 2025-06-29 14:03 | Hospitalist Progress Note ---
Date of Service June 29, 2025 Assessment & Plan (1) Closed head injury: Plan: Fortunately, head CT scan on admission was unremarkable except for age-related changes. Supportive care. (2) Ambulatory dysfunction: Plan: Appears to be due to underlying Parkinson's disease. Sinemet has been started and has been well-tolerated so far. OT and PT assessments remain pending (3) Senile dementia: Plan: Supportive care (4) Leg edema: Plan: No overt CHF. Edema is worse on the right lower extremity than the left. Suspect underlying chronic venous insufficiency. He does have a history of previous DVT involving the right leg but I do not think systemic anticoagulation is an option in this particular patient with frequent falls where the risks definitely outweigh the potential benefits. Currently being treated with compression stockings (5) Hyperlipidemia: Plan: Stable. Continue statin therapy Plan OT and PT assessments have been requested. Probable SNF placement at discharge. He is medically stable when arrangements are finalized Admission and Anticipated Discharge Date Admission Date: June 28, 2025 Subjective The patient appears better. He is awake and alert. He has severe underlying dementia however. He is tolerating the Sinemet so far. Review of Systems 2 Review of Systems: The patient has severe baseline dementia and is unable to reliably answer any questions regarding review of systems at this time Physical Exam 2 Physical Exam: General-awake. Demented. Oriented to name only. HEENT - head atraumatic and normocephalic, pupils equal and reactive to light, extraocular muscles intact Neck-no lymphadenopathy or thyromegaly, trachea midline Chest-clear to auscultation. No rales, wheezing or rhonchi Cardiac-regular rate and rhythm, normal S1 and S2 Abdomen-normal bowel sounds, no hepatosplenomegaly Extremities-no cyanosis, clubbing, or edema Neuro-cranial nerves II through XII intact. Strength symmetrical but he appears to have generalized weakness. There are no focal deficits Psych-baseline dementia. Normal affect Results & Data Results & Data Vital Signs (Past 12 Hours) Vital Signs Temp Pulse Resp BP Pulse Ox O2 Del Method 06/29/25 07:20 Room Air 06/29/25 07:15 36.9 C 68 16 124/74 96 Room Air Laboratory Results 06/29/25 07:31 06/29/25 07:31 PG Care Time/CCT Total # of Minutes Spent Total Time Spent with Patient: Total time spent is greater than 50% in coordination of care (as documented) at patient's floor/unit and/or counseling patient: Coding Level of Care Code 06961 SUB INP/OBS CARE 235MIN Diagnoses Closed head injury S09.90XA Ambulatory dysfunction R26.2 Senile dementia F03.90 Leg edema R60.0 Hyperlipidemia E78.5
--- NOTE | 2025-06-30 12:14 | Hospitalist Progress Note ---
Date of Service June 30, 2025 Assessment & Plan (1) Closed head injury: Plan: Fortunately, head CT scan on admission was unremarkable except for age-related changes. Supportive care. (2) Ambulatory dysfunction: Plan: Appears to be due to underlying Parkinson's disease. Sinemet has been started and has been well-tolerated so far. OT and PT assessments have been completed and both recommend rehab placement at discharge (3) Senile dementia: Plan: Supportive care (4) Leg edema: Plan: No overt CHF. Edema is worse on the right lower extremity than the left. Suspect underlying chronic venous insufficiency. He does have a history of previous DVT involving the right leg but I do not think systemic anticoagulation is an option in this particular patient with frequent falls where the risks definitely outweigh the potential benefits. Currently being treated with compression stockings. Improving (5) Hyperlipidemia: Plan: Stable. Continue statin therapy Plan OT and PT assessments have been completed and both recommend rehab placement at discharge. He is medically stable for discharge when arrangements are finalized Admission and Anticipated Discharge Date Admission Date: June 28, 2025 Subjective Alert. Stable. No new problems. Review of Systems 2 Review of Systems: The patient has severe baseline dementia and is unable to reliably answer any questions regarding review of systems at this time Physical Exam 2 Physical Exam: General-awake. Demented. Oriented to name only. HEENT - head atraumatic and normocephalic, pupils equal and reactive to light, extraocular muscles intact Neck-no lymphadenopathy or thyromegaly, trachea midline Chest-clear to auscultation. No rales, wheezing or rhonchi Cardiac-regular rate and rhythm, normal S1 and S2 Abdomen-normal bowel sounds, no hepatosplenomegaly Extremities-no cyanosis, clubbing, or edema Neuro-cranial nerves II through XII intact. Strength symmetrical but he appears to have generalized weakness. There are no focal deficits Psych-baseline dementia. Normal affect Results & Data Results & Data Vital Signs (Past 12 Hours) Vital Signs Temp Pulse Resp BP BP Pulse Ox O2 Del Method 06/30/25 11:39 36.8 C 71 16 106/71 94 Room Air 06/30/25 07:39 36.7 C 72 16 122/77 95 Room Air 06/30/25 07:20 Room Air Laboratory Results 06/29/25 07:31 06/29/25 07:31 PG Care Time/CCT Total # of Minutes Spent Total Time Spent with Patient: Total time spent is greater than 50% in coordination of care (as documented) at patient's floor/unit and/or counseling patient: Coding Level of Care Code 67088 SUB INP/OBS CARE 2/35MIN Diagnoses Closed head injury S09.90XA Ambulatory dysfunction R26.2 Senile dementia F03.90 Leg edema R60.0 Hyperlipidemia E78.5
--- NOTE | 2025-07-01 13:04 | Hospitalist Progress Note ---
Date of Service July 01, 2025 Assessment & Plan (1) Closed head injury: Plan: Fortunately, head CT scan on admission was unremarkable except for age-related changes. Supportive care. (2) Ambulatory dysfunction: Plan: Appears to be due to underlying Parkinson's disease. Sinemet has been started and has been well-tolerated so far. OT and PT assessments have been completed and both recommend rehab placement at discharge (3) Senile dementia: Plan: Supportive care (4) Leg edema: Plan: No overt CHF. Edema was worse on the right lower extremity than the left on admission. Now resolved. Suspect underlying chronic venous insufficiency. He does have a history of previous DVT involving the right leg but I do not think systemic anticoagulation is an option in this particular patient with frequent falls where the risks definitely outweigh the potential benefits. (5) Hyperlipidemia: Plan: Stable. Continue statin therapy Plan OT and PT assessments have been completed and both recommend rehab placement at discharge. He is medically stable for discharge when arrangements are finalized Admission and Anticipated Discharge Date Admission Date: June 28, 2025 Subjective Alert. Stable overall. No new problems. Lower leg edema has resolved and he is no longer wearing HAYDEE hose. Review of Systems 2 Review of Systems: The patient has severe baseline dementia and is unable to reliably answer any questions regarding review of systems at this time Physical Exam 2 Physical Exam: General-awake. Demented. Oriented to name only. HEENT - head atraumatic and normocephalic, pupils equal and reactive to light, extraocular muscles intact Neck-no lymphadenopathy or thyromegaly, trachea midline Chest-clear to auscultation. No rales, wheezing or rhonchi Cardiac-regular rate and rhythm, normal S1 and S2 Abdomen-normal bowel sounds, no hepatosplenomegaly Extremities-no cyanosis, clubbing, or edema Neuro-cranial nerves II through XII intact. Strength symmetrical but he appears to have generalized weakness. There are no focal deficits Psych-baseline dementia. Normal affect Results & Data Results & Data Vital Signs (Past 12 Hours) Vital Signs Temp Pulse Resp BP Pulse Ox O2 Del Method 07/01/25 07:49 36.6 C 69 16 138/87 95 Room Air 07/01/25 07:13 Room Air Laboratory Results 06/29/25 07:31 06/29/25 07:31 PG Care Time/CCT Total # of Minutes Spent Total Time Spent with Patient: Total time spent is greater than 50% in coordination of care (as documented) at patient's floor/unit and/or counseling patient: Coding Level of Care Code 10060 SUB INP/OBS CARE 235MIN Diagnoses Closed head injury S09.90XA Ambulatory dysfunction R26.2 Senile dementia F03.90 Leg edema R60.0 Hyperlipidemia E78.5
--- NOTE | 2025-07-02 12:52 | Hospitalist Progress Note ---
Date of Service July 02, 2025 Assessment & Plan (1) Closed head injury: Plan: Fortunately, head CT scan on admission was unremarkable except for age-related changes. Supportive care. (2) Ambulatory dysfunction: Plan: Appears to be due to underlying Parkinson's disease. Sinemet has been started and has been well-tolerated so far. OT and PT assessments have been completed and both recommend rehab placement at discharge (3) Senile dementia: Plan: Supportive care (4) Leg edema: Plan: No overt CHF. Edema was worse on the right lower extremity than the left on admission. Now resolved. Suspect underlying chronic venous insufficiency. He does have a history of previous DVT involving the right leg but I do not think systemic anticoagulation is an option in this particular patient with frequent falls where the risks definitely outweigh the potential benefits. (5) Hyperlipidemia: Plan: Stable. Continue statin therapy Plan OT and PT assessments have been completed and both recommend rehab placement at discharge. He is medically stable for discharge when arrangements are finalized. [facility] Admission and Anticipated Discharge Date Admission Date: June 28, 2025 Subjective No significant change in clinical status. [facility]acement at [facility] Review of Systems 2 Review of Systems: The patient has severe baseline dementia and is unable to reliably answer any questions regarding review of systems at this time Physical Exam 2 Physical Exam: General-awake. Demented. Oriented to name only. HEENT - head atraumatic and normocephalic, pupils equal and reactive to light, extraocular muscles intact Neck-no lymphadenopathy or thyromegaly, trachea midline Chest-clear to auscultation. No rales, wheezing or rhonchi Cardiac-regular rate and rhythm, normal S1 and S2 Abdomen-normal bowel sounds, no hepatosplenomegaly Extremities-no cyanosis, clubbing, or edema Neuro-cranial nerves II through XII intact. Strength symmetrical but he appears to have generalized weakness. There are no focal deficits Psych-baseline dementia. Normal affect Results & Data Results & Data Vital Signs (Past 12 Hours) Vital Signs Temp Pulse Pulse Resp BP Pulse Ox O2 Del Method 07/02/25 12:16 36.9 C 77 16 106/70 94 Room Air 07/02/25 07:42 36.6 C 74 18 144/80 H 94 Room Air 07/02/25 07:20 Room Air Laboratory Results 06/29/25 07:31 06/29/25 07:31 PG Care Time/CCT Total # of Minutes Spent Total Time Spent with Patient: Total time spent is greater than 50% in coordination of care (as documented) at patient's floor/unit and/or counseling patient: Coding Level of Care Code 45360 SUB INP/OBS CARE 2/35MIN Diagnoses Closed head injury S09.90XA Ambulatory dysfunction R26.2 Senile dementia F03.90 Leg edema R60.0 Hyperlipidemia E78.5
--- NOTE | 2025-07-02 13:58 | Electrocardiogram Report ---
Test Reason : Blood Pressure : */* mmHG Vent. Rate : 68 BPM Atrial Rate : * BPM P-R Int : * ms QRS Dur : 94 ms QT Int : 404 ms P-R-T Axes : * -59 77 degrees QTcB Int : 429 ms Sinus rhythm Septal infarct Left anterior fascicular block Abnormal ECG When compared with ECG of 31-May-2025 13:51, No significant change Confirmed by Primo Welch ([id number]) on 07/02/2025 1:57:50 PM Referred By: REFERRED SELF Confirmed By: Primo Welch
[2025-07-03] MEDS: DOCUSATE SODIUM 100 MG CAP PO SCH (10:17)
[2025-07-03] MEDS: POLYETHYLENE (MIRALAX) 17 GM PACK PO SCH (10:17)
--- NOTE | 2025-07-03 15:31 | Hospitalist Progress Note ---
Date of Service July 03, 2025 Assessment & Plan (1) Closed head injury: Plan: Fortunately, head CT scan on admission was unremarkable except for age-related changes. Supportive care. (2) Ambulatory dysfunction: Plan: Appears to be due to underlying Parkinson's disease. Sinemet has been started and has been well-tolerated so far. The patient believes the addition of Sinemet has helped overall. OT and PT assessments have been completed and both recommend rehab placement at discharge (3) Senile dementia: Plan: Supportive care (4) Leg edema: Plan: No overt CHF. Edema was worse on the right lower extremity than the left on admission. Now resolved. Suspect underlying chronic venous insufficiency. He does have a history of previous DVT involving the right leg but I do not think systemic anticoagulation is an option in this particular patient with frequent falls where the risks definitely outweigh the potential benefits. (5) Hyperlipidemia: Plan: Stable. Continue statin therapy Plan OT and PT assessments have been completed and both recommend rehab placement at discharge. He is medically stable for discharge when arrangements are finalized. Anticipate eventual [facility]. Hopefully on July 05 Admission and Anticipated Discharge Date Admission Date: June 28, 2025 Subjective Alert and stable. The patient thinks the addition of Sinemet has helped his motor function. MiraLAX and Colace added for constipation. Anticipate discharge to [facility] Saturday Review of Systems 2 Review of Systems: The patient has severe baseline dementia and is unable to reliably answer any questions regarding review of systems at this time Physical Exam 2 Physical Exam: General-awake. Demented. Oriented to name only. HEENT - head atraumatic and normocephalic, pupils equal and reactive to light, extraocular muscles intact Neck-no lymphadenopathy or thyromegaly, trachea midline Chest-clear to auscultation. No rales, wheezing or rhonchi Cardiac-regular rate and rhythm, normal S1 and S2 Abdomen-normal bowel sounds, no hepatosplenomegaly Extremities-no cyanosis, clubbing, or edema Neuro-cranial nerves II through XII intact. Strength symmetrical but he appears to have generalized weakness. There are no focal deficits Psych-baseline dementia. Normal affect Results & Data Results & Data Vital Signs (Past 12 Hours) Vital Signs Temp Pulse Resp BP Pulse Ox O2 Del Method 07/03/25 14:16 36.5 C 71 16 96/61 L 95 Room Air 07/03/25 07:33 36.6 C 76 18 118/79 96 Room Air Laboratory Results 06/29/25 07:31 06/29/25 07:31 PG Care Time/CCT Total # of Minutes Spent Total Time Spent with Patient: Total time spent is greater than 50% in coordination of care (as documented) at patient's floor/unit and/or counseling patient: Coding Level of Care Code 94361 SUB INP/OBS CARE 2/35MIN Diagnoses Closed head injury S09.90XA Ambulatory dysfunction R26.2 Senile dementia F03.90 Leg edema R60.0 Hyperlipidemia E78.5
--- NOTE | 2025-07-04 10:58 | Hospitalist Progress Note ---
Date of Service July 04, 2025 Assessment & Plan (1) Closed head injury: Plan: Fortunately, head CT scan on admission was unremarkable except for age-related changes. Supportive care. (2) Ambulatory dysfunction: Plan: Appears to be due to underlying Parkinson's disease. Sinemet has been started and has been well-tolerated so far. The patient believes the addition of Sinemet has helped. OT and PT assessments have been completed and both recommend rehab placement at discharge (3) Senile dementia: Plan: Supportive care (4) Leg edema: Plan: No overt CHF. Edema was worse on the right lower extremity than the left on admission. Now resolved. Suspect underlying chronic venous insufficiency. He does have a history of previous DVT involving the right leg but I do not think systemic anticoagulation is an option in this particular patient with frequent falls where the risks definitely outweigh the potential benefits. (5) Hyperlipidemia: Plan: Stable. Continue statin therapy Plan OT and PT assessments have been completed and both recommend rehab placement at discharge. He is medically stable for discharge when arrangements are finalized. Anticip[facility]. Hopefully on July 05 Admission and Anticipated Discharge Date Admission Date: June 28, 2025 Subjective No new problems. Stable overall. Hopeful discharge to [facility] tomorrow, July 05 Review of Systems 2 Review of Systems: The patient has severe baseline dementia and is unable to reliably answer any questions regarding review of systems at this time Physical Exam 2 Physical Exam: General-awake. Demented. Oriented to name only. HEENT - head atraumatic and normocephalic, pupils equal and reactive to light, extraocular muscles intact Neck-no lymphadenopathy or thyromegaly, trachea midline Chest-clear to auscultation. No rales, wheezing or rhonchi Cardiac-regular rate and rhythm, normal S1 and S2 Abdomen-normal bowel sounds, no hepatosplenomegaly Extremities-no cyanosis, clubbing, or edema Neuro-cranial nerves II through XII intact. Strength symmetrical but he appears to have generalized weakness. There are no focal deficits Psych-baseline dementia. Normal affect Results & Data Results & Data Vital Signs (Past 12 Hours) Vital Signs Temp Pulse Pulse Resp BP Pulse Ox O2 Del Method 07/04/25 07:51 36.6 C 58 L 62 18 120/77 97 Room Air Laboratory Results 06/29/25 07:31 06/29/25 07:31 PG Care Time/CCT Total # of Minutes Spent Total Time Spent with Patient: Total time spent is greater than 50% in coordination of care (as documented) at patient's floor/unit and/or counseling patient: Coding Level of Care Code 33631 SUB INP/OBS CARE 2/35MIN Diagnoses Closed head injury S09.90XA Ambulatory dysfunction R26.2 Senile dementia F03.90 Leg edema R60.0 Hyperlipidemia E78.5
[2025-07-05 07:45] VITALS: TEMP 97.3
--- NOTE | 2025-07-05 08:14 | Hospitalist Progress Note ---
Date of Service July 05, 2025 Assessment & Plan (1) Closed head injury: Plan: Fortunately, head CT scan on admission was unremarkable except for age-related changes. Supportive care. (2) Ambulatory dysfunction: Plan: Appears to be due to underlying Parkinson's disease. Sinemet has been started and has been well-tolerated so far. The patient believes the addition of Sinemet has helped. OT and PT assessments have been completed and both recommend rehab placement at discharge (3) Senile dementia: Plan: Supportive care (4) Leg edema: Plan: No overt CHF. Edema was worse on the right lower extremity than the left on admission. Now resolved. Suspect underlying chronic venous insufficiency. He does have a history of previous DVT involving the right leg but I do not think systemic anticoagulation is an option in this particular patient with frequent falls where the risks definitely outweigh the potential benefits. (5) Hyperlipidemia: Plan: Stable. Continue statin therapy Plan OT and PT assessments have been completed and both recommend rehab placement at discharge. He is medically stable for discharge when arrangements are finalized. Anticipate eventual discharge to [facility]. Hopefully on July 05 Admission and Anticipated Discharge Date Admission Date: June 28, 2025 Results & Data Results & Data Vital Signs (Past 12 Hours) Vital Signs Temp Pulse Pulse Resp BP Pulse Ox O2 Del Method 07/05/25 07:43 97.3 F L 72 18 138/76 94 Room Air 07/05/25 07:26 Room Air 07/04/25 21:16 97.5 F L 73 18 116/75 93 Room Air PG Care Time/CCT Total # of Minutes Spent Total Time Spent with Patient: Total time spent is greater than 50% in coordination of care (as documented) at patient's floor/unit and/or counseling patient: Coding Diagnoses Closed head injury S09.90XA Ambulatory dysfunction R26.2 Senile dementia F03.90 Leg edema R60.0 Hyperlipidemia E78.5
--- NOTE | 2025-07-05 11:24 | Discharge Summary ---
Discharge Summary Date of Service July 05, 2025 Principal Dx & Hospital Course #1 = Principal Diagnosis (1) Closed head injury: Fortunately, head CT scan on admission was unremarkable except for age-related changes. Supportive care. (2) Ambulatory dysfunction: Appears to be due to underlying Parkinson's disease. Sinemet has been started and has been well-tolerated so far. The patient believes the addition of Sinemet has helped. OT and PT assessments have been completed and both recommend rehab placement at discharge, will continue sinemet at discharge, updated prior to discharge (3) Senile dementia: Supportive care (4) Leg edema: No overt CHF. Edema was worse on the right lower extremity than the left on admission. Now resolved. Suspect underlying chronic venous insufficiency. He does have a history of previous DVT involving the right leg but I do not think systemic anticoagulation is an option in this particular patient with frequent falls where the risks definitely outweigh the potential benefits. (5) Hyperlipidemia: Stable. Continue statin therapy Plan OT and PT assessments have been completed and both recommend rehab placement at discharge. He is medically stable for discharge, given unstageable decubitus present on admisson will recommend good skin/wound care continue at snf Notes For Next Care Provider eval for Sinemet effectiveness and dose adjustment continued eval for skin healing and nutrition Admission HPI Per Admitting Provider 75-year-old white male with dementia who has ambulatory dysfunction and appears to also have Parkinson's disease. He recently fell suffering a closed head injury without overt evidence of head trauma and no apparent loss of consciousness. He was difficult to arouse, however, according to his today and was brought to the ER by family members. Head CT scan today is unremarkable except for chronic findings including cerebral atrophy and small vessel disease. He is admitted for further evaluation and initiation of Sinemet therapy along with OT and PT evaluations. He probably will need SNF placement at discharge. 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 dyslipidemia Condition on Discharge: Fair Activity: Per Instructions section Activity Comment: Pt is a fall risk Non-emergency contact: Primary Care Provider Call non-emergency contact if: your symptoms worsen Follow-up/Referrals: Oneil Hinojosa MD [Primary Care Provider] - Diet: Heart Healthy Addtl Attending Provider Instructions: there were no direct metabolic causes for his fall, he presented with sacral and ischial tuberosity wound consistent with pressure that implies he has had mobility issues for some time recommend good skin and wound care Pending Studies at Discharge: No Stand-Alone Forms: My [facility] Skilled Items Patient informed of condition?: Yes DNR: Yes Discharge Level of Care: Other Communicable Disease: No Discharge Prognosis: Stable Lines: None Urinary Catheter: No Medications and DC Order Prescriptions: New carbidopa-levodopa 25-250 mg Tablet 1 tab PO TID Qty: 90 0RF Continued pravastatin 10 mg tablet 5 mg PO HS multivitamin Tablet 1 tab PO DAILY zinc 50 mg Tablet 50 mg PO .Q OTHER DAY Discharge Orders: Discharge Order (Routine); Ordered 07/05/25 Ordered By: Salvatore Diaz Admission Data Admit Date/Time: 06/28/25 16:01 Attending Provider: Salvatore Diaz Admit Provider: Barry Ferrera Primary Care Provider: Oneil Hinojosa Other Providers: Barry Ferrera; [place],[facility] Other Interventions: Discharge Summary Assessment (RN) Last Done: 07/05/25 10:43 Hospital Stay Data Consultations 06/28/25 15:00 ED Decision to Admit Stat Diagnostic Imagining Performed 06/28/25 13:16 CT cervical spine wo con Stat CT head/brain wo con Stat Pending Results Patient Have Any Pending Studies at Discharge: No Discharge Instructions Given to Patient (Per Discharging Provider) there were no direct metabolic causes for his fall, he presented with sacral and ischial tuberosity wound consistent with pressure that implies he has had mobility issues for some time recommend good skin and wound care Total Time Total Time Spent Total Time Spent (In Minutes): It required greater than 30 minutes to prepare this patient for discharge. Coding Level of Care Code 65108 INP/OBS DISCH >30 MIN Diagnoses Closed head injury S09.90XA Ambulatory dysfunction R26.2 Senile dementia F03.90 Leg edema R60.0 Hyperlipidemia E78.5
[2025-07-05 12:03] VITALS: BP 109/79; PULSE 75; RESP 16; O2SAT 96
== END 2025-07-05 14:00 | DRG 914 ==
LOC: SUATTDRO → ED 13:02 → INTOOBSV 16:01 → SUATTDRO 16:01 → 3N 16:01